=== PATIENT | female | born 1995 | race Caucasian/White ===

== ENCOUNTER 2018-03-12 12:52 | Emergency (ER) | payer OTHER ==
--- OUTSIDE RECORDS SUMMARY | 2018-03-12 12:54 | XMS REPORT ---
:1995 [facility] Address [address] [place] [address] Care Team Providers Name Role Phone Unavailable Unavailable Unavailable Problems This patient has no known problems. Allergies, Adverse Reactions, Alerts This patient has no known allergies or adverse reactions. Medications This patient has no known medications.
[2018-03-12 14:37] LABS: Absolute Lymphocytes (CBC) 1.1 K/uL (0.7-4.9); Absolute Monocytes 0.5 K/uL (0.1-1.3); Absolute Neutrophil 4.8 K/uL (1.8-8.0); Basophils % 0.5 % (0-1.3); Eosinophils % 1.4 % (0-4.4); Hematocrit 37.4 % (36.0-45.0); Lymphocytes % 17.1 % (15.3-44.8); MPV 8.5 fL (7.6-11.3); Monocytes % 8.1 % (3.3-12.3); RBC Red Blood Cell Count 4.03 M/uL (3.86-4.86)
[2018-03-12] MEDS ORDERED: NA CHLORIDE 0.9% 1,000 ML ONE (14:39)
--- NOTE | 2018-03-12 14:45 | RAD REPORT ---
EXAM DESCRIPTION: RAD - Chest Single View - 03/12/2018 2:38 pm CLINICAL HISTORY: CONGESTION Chest pain. COMPARISON: No comparisons FINDINGS: Portable technique limits examination quality. The lungs are grossly clear. The heart is normal in size. No displaced fractures. IMPRESSION: No acute intrathoracic process suspected.
[2018-03-12 14:58] LABS: ALT/SGPT 19 U/L (12-78); AST/SGOT 11 U/L (15-37); Albumin 3.5 g/dL (3.4-5.0); Alkaline Phosphatase 66 U/L (45-117); BUN Blood Urea Nitrogen 13 mg/dL (7-18); Bicarbonate 28 mmol/L (21-32); Bilirubin Direct 0.2 mg/dL (0-0.2); Bilirubin Total 0.5 mg/dL (0.2-1.0); Glucose Level 74 mg/dL (74-106); Magnesium 2.2 mg/dL (1.8-2.4); NT PRO-BNP 31 pg/mL (<125); Potassium 3.7 mmol/L (3.5-5.1); Protein, Total 6.6 g/dL (6.4-8.2); Sodium Level 140 mmol/L (136-145); Troponin (Emerg Dept Use Only) < 0.02 ng/mL (0.0-0.045)
--- NOTE | 2018-03-12 15:10 | EDPHYS ---
Physician Documentation [facility] Name: Liberty Lujan Age: 23 yrs Sex: Female : 1995 Arrival Date: 03/12/2018 Time: 12:58 Bed 24 Private MD: ED Physician [place] HPI: 03/12 14:26 This 23 yrs old Female presents to ER via Ambulatory with complaints of Near ezekiel Syncope. 14:26 The patient has experienced near-syncope, almost passed out, felt dizzy. Onset: The ezekiel symptoms/episode began/occurred just prior to arrival. Duration: This was a single episode, that lasted 20 second(s). Context: the episode(s) was witnessed, by co-worker(s). Associated injury: The patient did not suffer any apparent associated injury. Associated signs and symptoms: The patient has no apparent associated signs or symptoms. Current symptoms: Currently, the patient is not experiencing any symptoms, the patient feels back to baseline. The patient has experienced similar episodes in the past, multiple times. Historical: - Allergies: 13:01 Robitussin Cough \T\ Cold CF; ss - Home Meds: 13:01 None [Active]; ss - PMHx: 13:01 vasovagal syncope; ss - PSHx: 13:01 None; ss - Immunization history:: Adult Immunizations up to date. - Social history:: Smoking status: Patient uses tobacco products, smokes one-half pack cigarettes per day. - Ebola Screening: : Patient denies exposure to infectious person Patient denies travel to an Ebola-affected area in the 21 days before illness onset. - Family history:: not pertinent. ROS: 14:26 Constitutional: Negative for fever, chills, and weight loss, Eyes: Negative for injury, ezekiel pain, redness, and discharge, ENT: Negative for injury, pain, and discharge, Neck: Negative for injury, pain, and swelling, Cardiovascular: Negative for chest pain, palpitations, and edema, Respiratory: Negative for shortness of breath, cough, wheezing, and pleuritic chest pain, Abdomen/GI: Negative for abdominal pain, nausea, vomiting, diarrhea, and constipation, Back: Negative for injury and pain, : Negative for injury, bleeding, discharge, and swelling, Skin: Negative for injury, rash, and discoloration, Psych: Negative for depression, anxiety, suicide ideation, homicidal ideation, and hallucinations, Allergy/Immunology: Negative for hives, rash, and allergies, Endocrine: Negative for neck swelling, polydipsia, polyuria, polyphagia, and marked weight changes, Hematologic/Lymphatic: Negative for swollen nodes, abnormal bleeding, and unusual bruising. 14:26 Neuro: Positive for dizziness, near syncope, weakness. Exam: 14:26 Constitutional: This is a well developed, well nourished patient who is awake, alert, ezekiel and in no acute distress. Head/Face: Normocephalic, atraumatic. Eyes: Pupils equal round and reactive to light, extra-ocular motions intact. Lids and lashes normal. Conjunctiva and sclera are non-icteric and not injected. Cornea within normal limits. Periorbital areas with no swelling, redness, or edema. ENT: Nares patent. No nasal discharge, no septal abnormalities noted. Tympanic membranes are normal and external auditory canals are clear. Oropharynx with no redness, swelling, or masses, exudates, or evidence of obstruction, uvula midline. Mucous membranes moist. Neck: Trachea midline, no thyromegaly or masses palpated, and no cervical lymphadenopathy. Supple, full range of motion without nuchal rigidity, or vertebral point tenderness. No Meningismus. Chest/axilla: Normal chest wall appearance and motion. Nontender with no deformity. No lesions are appreciated. Cardiovascular: Regular rate and rhythm with a normal S1 and S2. No gallops, murmurs, or rubs. Normal PMI, no JVD. No pulse deficits. Respiratory: Lungs have equal breath sounds bilaterally, clear to auscultation and percussion. No rales, rhonchi or wheezes noted. No increased work of breathing, no retractions or nasal flaring. Abdomen/GI: Soft, non-tender, with normal bowel sounds. No distension or tympany. No guarding or rebound. No evidence of tenderness throughout. Back: No spinal tenderness. No costovertebral tenderness. Full range of motion. Skin: Warm, dry with normal turgor. Normal color with no rashes, no lesions, and no evidence of cellulitis. MS/ Extremity: Pulses equal, no cyanosis. Neurovascular intact. Full, normal range of motion. Neuro: Awake and alert, GCS 15, oriented to person, place, time, and situation. Cranial nerves II-XII grossly intact. Motor strength 5/5 in all extremities. Sensory grossly intact. Cerebellar exam normal. Normal gait. Psych: Awake, alert, with orientation to person, place and time. Behavior, mood, and affect are within normal limits. 14:26 Musculoskeletal/extremity: Extremities: all appear grossly normal, with no appreciated pain with palpation, ROM: no acute changes, intact in all extremities, full active range of motion, full passive range of motion, Circulation is intact in all extremities. Sensation intact. Compartment Syndrome exam of affected extremity: is normal. DVT Exam: No signs of deep vein thrombosis. no pain, no swelling, no tenderness, negative Homans' sign noted on exam, no appreciated bluish discoloration, no erythema, no increased warmth. Vital Signs: 13:01 BP 101 / 61; Pulse 102; Resp 15; Pulse Ox 100% on R/A; Weight 57.15 kg; Height 5 ft. 1 ss in. (154.94 cm); Pain 0/10; 14:28 BP 98 / 65 Supine; Pulse 90; gm 14:29 BP 99 / 67 Sitting; Pulse 97; gm 14:30 BP 99 / 66 Standing; Pulse 97; gm 15:12 BP 103 / 68; Pulse 81; Resp 16; Pulse Ox 98% on R/A; kr2 16:12 BP 108 / 70; Pulse 90; Resp 16; Pulse Ox 100% on R/A; kr2 13:01 Body Mass Index 23.81 (57.15 kg, 154.94 cm) ss MDM: 13:41 Patient medically screened. [facility] 14:29 Data reviewed: vital signs, nurses notes, lab test result(s), EKG, radiologic studies, [facility] doppler, plain films. 03/12 14:24 Order name: Basic Metabolic Panel; Complete Time: 15:09 [facility] 03/12 14:24 Order name: CBC with Diff; Complete Time: 15: [facility] 03/12 14:24 Order name: LFT's; Complete Time: 15: [facility] 03/12 14:24 Order name: Magnesium; Complete Time: 15: [facility] 03/12 14:24 Order name: NT PRO-BNP; Complete Time: 15: [facility] 03/12 14:24 Order name: Troponin (emerg Dept Use Only); Complete Time: 15: [facility] 03/12 14:24 Order name: XRAY Chest (1 view); Complete Time: 15:09 [facility] 03/12 14:24 Order name: D-Dimer; Complete Time: 15:09 [facility] 03/12 14:24 Order name: Urine Culture [facility] 03/12 14:29 Order name: Echo w/ Doppler [facility] 03/12 15:57 Order name: Urine Dipstick--Ancillary (enter results) 03/12 15:57 Order name: Urine --Ancillary (enter results) 03/12 13:42 Order name: EKG - Nurse/Tech; Complete Time: 14:10 [facility] 03/12 14:24 Order name: EKG; Complete Time: 14:25 [facility] 03/12 14:24 Order name: Cardiac monitoring; Complete Time: 14:24 [facility] 03/12 14:24 Order name: IV Saline Lock; Complete Time: 14:25 [facility] 03/12 14:24 Order name: Labs collected and sent; Complete Time: 14:25 [facility] 03/12 14:24 Order name: O2 Per Protocol; Complete Time: 14:25 [facility] 03/12 14:24 Order name: O2 Sat Monitoring; Complete Time: 14:25 [facility] 03/12 14:24 Order name: Urine Dipstick-Ancillary (obtain specimen); Complete Time: 15:11 [facility] 03/12 14:24 Order name: Urine Test (obtain specimen); Complete Time: 15:11 [facility] 03/12 14:24 Order name: Orthostatics; Complete Time: 14:32 [facility] Administered Medications: 14:31 Drug: NS 0.9% 1000 ml Route: IV; Rate: 1 bolus; Site: right forearm; kr2 15:53 Follow up: Response: No adverse reaction; IV Status: Completed infusion kr2 15:35 Drug: Rocephin - (cefTRIAXone) 1 grams Route: IVPB; Infused Over: 30 mins; Site: right kr2 forearm; 15:53 Follow up: Response: No adverse reaction; IV Status: Completed infusion kr2 15:53 Drug: Cipro 250 mg Route: PO; kr2 15:53 Follow up: Response: Medication administered at discharge. kr2 Disposition: 03/12/18 15:09 Discharged to Home. Impression: Syncope and collapse - vasovagal, Hypotension, Urinary tract infection, site not specified. - Condition is Stable. - Discharge Instructions: Dysuria, Near-Syncope, Urinary Tract Infection, Adult, Weakness, Urinary Tract Infection, Adult, [id number]-[id number], Near-Syncope, Wweq-ri-Lvfg, Weakness, Hzbk-bn-Mbvo, Vasovagal Syncope, Adult. - Prescriptions for Cipro 250 mg Oral Tablet - take 1 tablet by ORAL route every 12 hours; 14 tablet. - Medication Reconciliation Form, Thank You Letter, Antibiotic Education, Prescription Opioid Use, Work release form form. - Follow up: Private Physician; When: 2 - 3 days; Reason: Recheck today's complaints, Continuance of care, Re-evaluation by your physician. Follow up: Regis Joel; When: 2 - 3 days; Reason: Recheck today's complaints, Re-evaluation by your physician. - Problem is new. - Symptoms have improved. Signatures: Dispatcher [employer] EDMS [place] MD MD cha Smirch, Shelby, RN RN ss Ivett Nails RN RN kr2 Corrections: (The following items were deleted from the chart) 15:10 15:09 03/12/2018 15:09 Discharged to Home. Impression: Syncope and collapse - ezekiel vasovagal; Hypotension. Condition is Stable. Discharge Instructions: Near-Syncope, Weakness, Near-Syncope, Jkmb-zv-Gfbi, Weakness, Ebdg-nd-Uigc, Vasovagal Syncope, Adult. Forms are Medication Reconciliation Form, Thank You Letter, Antibiotic Education, Prescription Opioid Use. Follow up: Private Physician; When: 2 - 3 days; Reason: Recheck today's complaints, Continuance of care, Re-evaluation by your physician. Follow up: Regis Joel; When: 2 - 3 days; Reason: Recheck today's complaints, Re-evaluation by your physician. Problem is new. Symptoms have improved. [facility] 16:14 15:10 03/12/2018 15:09 Discharged to Home. Impression: Syncope and collapse - kr2 vasovagal; Hypotension; Urinary tract infection, site not specified. Condition is Stable. Discharge Instructions: Near-Syncope, Weakness, Near-Syncope, Zmvv-ld-Lxkj, Weakness, Uwyv-ci-Rntc, Vasovagal Syncope, Adult. Forms are Medication Reconciliation Form, Thank You Letter, Antibiotic Education, Prescription Opioid Use. Follow up: Private Physician; When: 2 - 3 days; Reason: Recheck today's complaints, Continuance of care, Re-evaluation by your physician. Follow up: Regis Joel; When: 2 - 3 days; Reason: Recheck today's complaints, Re-evaluation by your physician. Problem is new. Symptoms have improved. ezekiel
--- NOTE | 2018-03-12 15:10 | ER ---
Nurse's Notes [facility] Name: Liberty Lujan Age: 23 yrs Sex: Female : 1995 Arrival Date: 03/12/2018 Time: 12:58 Bed 24 Private MD: Diagnosis: Syncope and collapse-vasovagal;Hypotension;Urinary tract infection, site not specified Presentation: 03/12 12:58 Presenting complaint: Patient states: near syncope while at work. Pt reports that this ss is an often occurrence. On EMS arrival. EMS reports that initial BP was 91/70, BGL 107. Pt reports that Dr. Ohara had prescribed her a medication to help with her hypotension, but it was making her BP too high, so she has been taken off. Transition of care: patient was not received from another setting of care. Onset of symptoms was March 12, 2018. Risk Assessment: Do you want to hurt yourself or someone else? Patient reports no desire to harm self or others. Initial Sepsis Screen: Does the patient meet any 2 criteria? No. Patient's initial sepsis screen is negative. Does the patient have a suspected source of infection? No. Patient's initial sepsis screen is negative. Care prior to arrival: Medication(s) given: Normal saline infusion, 500 mL, IV initiated. 20 GA, in the right antecubital area, Glucose check: 107. 12:58 Method Of Arrival: Ambulatory ss 12:58 Acuity: TRENT 3 ss Historical: - Allergies: 13:01 Robitussin Cough \T\ Cold CF; ss - Home Meds: 13:01 None [Active]; ss - PMHx: 13:01 vasovagal syncope; ss - PSHx: 13:01 None; ss - Immunization history:: Adult Immunizations up to date. - Social history:: Smoking status: Patient uses tobacco products, smokes one-half pack cigarettes per day. - Ebola Screening: : Patient denies exposure to infectious person Patient denies travel to an Ebola-affected area in the 21 days before illness onset. - Family history:: not pertinent. Screenin:15 Abuse screen: Denies threats or abuse. Denies injuries from another. Nutritional kr2 screening: No deficits noted. Tuberculosis screening: No symptoms or risk factors identified. Fall Risk IV access (20 points). Assessment: 13:15 General: Appears in no apparent distress. comfortable, well groomed, well developed, kr2 well nourished, Behavior is calm, cooperative, appropriate for age. Pain: Denies pain. Neuro: Level of Consciousness is awake, alert, obeys commands, Oriented to person, place, time, situation, Appropriate for age Chemistry Technician are equal bilaterally Moves all extremities. Full function Speech is normal, Facial symmetry appears normal, Pupils are PERRLA, Intact. Cardiovascular: Capillary refill < 3 seconds in bilateral fingers Patient's skin is warm and dry. Respiratory: Airway is patent Respiratory effort is even, unlabored, Respiratory pattern is regular, symmetrical. GI: Abdomen is flat, non-distended, Bowel sounds present X 4 quads. Abd is soft and non tender X 4 quads. Patient currently denies abdominal pain. : Denies burning with urination. EENT: Oral mucosa is moist. Derm: Skin is intact, is healthy with good turgor, Skin is pink, warm \T\ dry. pale. Musculoskeletal: Circulation, motion, and sensation intact. 14:15 Reassessment: Patient appears in no apparent distress at this time. Patient and/or kr2 family updated on plan of care and expected duration. Pain level reassessed. Patient is alert, oriented x 3, equal unlabored respirations, skin warm/dry/pink. Patient denies pain at this time. Patient states feeling better. 15:12 Reassessment: Patient appears in no apparent distress at this time. Patient and/or kr2 family updated on plan of care and expected duration. Pain level reassessed. Patient is alert, oriented x 3, equal unlabored respirations, skin warm/dry/pink. Patient denies pain at this time. Patient states feeling better. Pain: Denies pain. 16:11 Reassessment: Patient appears in no apparent distress at this time. Patient and/or kr2 family updated on plan of care and expected duration. Pain level reassessed. Patient is alert, oriented x 3, equal unlabored respirations, skin warm/dry/pink. Patient denies pain at this time. Patient states feeling better. Vital Signs: 13:01 BP 101 / 61; Pulse 102; Resp 15; Pulse Ox 100% on R/A; Weight 57.15 kg; Height 5 ft. 1 ss in. (154.94 cm); Pain 0/10; 14:28 BP 98 / 65 Supine; Pulse 90; gm 14:29 BP 99 / 67 Sitting; Pulse 97; gm 14:30 BP 99 / 66 Standing; Pulse 97; gm 15:12 BP 103 / 68; Pulse 81; Resp 16; Pulse Ox 98% on R/A; kr2 16:12 BP 108 / 70; Pulse 90; Resp 16; Pulse Ox 100% on R/A; kr2 13:01 Body Mass Index 23.81 (57.15 kg, 154.94 cm) ED Course: 12:58 Patient arrived in ED. ss 13:00 Triage completed. ss 13:01 Arm band placed on right wrist. ss 13:15 Patient has correct armband on for positive identification. Placed in gown. Bed in low kr2 position. Call light in reach. Side rails up X2. Adult w/ patient. nurse monitoring on. Pulse ox on. NIBP on. Door closed. Warm blanket given. Head of bed elevated. 13:15 Maintain EMS IV. Dressing intact. Good blood return noted. Site clean \T\ dry. Gauge \T\ kr 2 site: 20g right forearm. 13:41 [place] MD is Attending Physician. ezekiel 13:41 Ivett Nails, OG is Primary Nurse. kr2 14:05 EKG done, by technical lead. reviewed by [place] MD. tc 14:38 X-ray completed. Portable x-ray completed in exam room. Patient tolerated procedure kp1 well. 14:39 XRAY Chest (1 view) In Process Unspecified. EDMS 15:09 Regis Joel MD is Referral Physician. ezekiel 15:11 Urine Culture Sent. kr2 16:13 IV discontinued, intact, bleeding controlled, No redness/swelling at site. Pressure kr2 dressing applied. 16:13 No provider procedures requiring assistance completed. kr2 Administered Medications: 14:31 Drug: NS 0.9% 1000 ml Route: IV; Rate: 1 bolus; Site: right forearm; kr2 15:53 Follow up: Response: No adverse reaction; IV Status: Completed infusion kr2 15:35 Drug: Rocephin - (cefTRIAXone) 1 grams Route: IVPB; Infused Over: 30 mins; Site: right kr2 forearm; 15:53 Follow up: Response: No adverse reaction; IV Status: Completed infusion kr2 15:53 Drug: Cipro 250 mg Route: PO; kr2 15:53 Follow up: Response: Medication administered at discharge. kr2 Outcome: 15:09 Discharge ordered by . ezekiel 16:13 Discharged to home ambulatory, with family. kr2 16:13 Condition: good 16:13 Discharge instructions given to patient, family, Instructed on discharge instructions, follow up and referral plans. medication usage, Demonstrated understanding of instructions, follow-up care, medications, Prescriptions given X 1. 16:14 Patient left the ED. kr2 Addendum: 03/15/2018 08:50 Addendum: Culture Results: Positive urine culture. No further action required. Bacteria i w sensitive to prescribed antibiotic. Signatures: Dispatcher [employer] EDMS [place] MD MD cha Williams, Irene, RN RN Marily Gardner RN RN Brenda Maciel, site administrator EKG [facility] Nanda Middleton kp1 Ivett Nails RN RN kr2 Kimber Zhang Corrections: (The following items were deleted from the chart) 03/12 13:02 12:58 Care prior to arrival: None. [facility] 14:32 14:32 BP 99 / 66 Standing; Pulse 97bpm; gm gm
--- NOTE | 2018-03-12 15:17 | EKG ---
Test Date: 2018-03-12 Test Time: 13:58:23 Supervisory Lifeguard: DT/T MEASUREMENT RESULTS: Intervals: Rate: 93 IA: 146 QRSD: 74 QT: 358 QTc: 445 [place]: P: 79 IA: 146 QRS: 83 T: 66 INTERPRETIVE STATEMENTS: Normal sinus rhythm Normal ECG No previous ECG available for comparison Electronically Signed On 03-12-18 15:17:15 HOOP PUNCH AND COILER OPERATOR by Regis Joel
--- NOTE | 2018-03-12 15:19 | ECHO ---
HEIGHT: ft in WEIGHT: lb oz DATE OF STUDY: 03/12/[address]: [place] MD 2-DIMENSIONAL: YES M.MODE: YES DOPPLER: YES COLOR FLOW: YES TDS: PORTABLE: DEFINITY: BUBBLE STUDY: DIAGNOSIS: SYNCOPE CARDIAC HISTORY: CATHERIZATION: NO SURGERY: NO PROSTHETIC VALVE: NO PACEMAKER: NO MEASUREMENTS (cm) DIASTOLIC (NORMALS) SYSTOLIC (NORMALS) IVSd 0.8 (0.6-1.2) LA Diam 2.6 (1.9-4.0) LVEF 64% LVIDd 3.7 (3.5-5.7) LVIDs 2.1 (2.0-3.5) %FS 42% LVPWd 0.9 (0.6-1.2) Ao Diam 2.3 (2.0-3.7) 2 DIMENSIONAL ASSESSMENT: RIGHT ATRIUM: NORMAL LEFT ATRIUM: NORMAL RIGHT VENTRICLE: NORMAL LEFT VENTRICLE: NORMAL TRICUSPID VALVE: NORMAL MITRAL VALVE: NORMAL PULMONIC VALVE: NORMAL AORTIC VALVE: NORMAL PERICARDIAL EFFUSION: NONE AORTIC ROOT: NORMAL LEFT VENTRICULAR WALL MOTION: NORMAL DOPPLER/COLOR FLOW: PHYSIOLOGIC TRICUSPID REGURGITATION. COMMENTS: NORMAL TWO DIMENSIONAL ECHOCARDIOGRAM WITH DOPPLER. TECHNOLOGIST: LEE EVANGELISTA
[2018-03-12] MEDS ORDERED: CEFTRIAXONE/SWI 1gm 1 GM/10 ML SYR ONE (15:39)
[2018-03-12] MEDS ORDERED: CIPROFLOXACIN HCL 500 MG TAB ONE (15:52)
[2018-03-12 16:19] LABS: Urine Blood NEGATIVE (NEG); Urine Glucose NEGATIVE (NEG); Urine Protein NEGATIVE (NEG)
[2018-03-12 17:09] VITALS: BP 108/70; O2SAT 100
== END 2018-03-12 16:14 | disposition home or self-care (01) ==
LOC: ER 12:52
DX: I95.9 Hypotension, unspecified (principal); N39.0 Urinary tract infection, site not specified; F17.210 Nicotine dependence, cigarettes, uncomplicated; Z88.8 Allergy status to other drugs, medicaments and biological substances
CPT/HCPCS: 36415; 71045; 80048; 80076; 81003; 81025; 83735; 83880; 84484; 85025; 85379; 87077; 87086; 87088; 87186; 93005; 93306; 96361; 96365; 99284; J0696; J7030

== ENCOUNTER 2018-09-14 17:16 | Emergency (ER) | payer OTHER ==
--- OUTSIDE RECORDS SUMMARY | 2018-09-14 17:19 | XMS REPORT | Summary of Care ---
:1995 Author Organization [facility] [place] Address [address] [place] [address]- Encounter HQ Encntr_alias(FIN) [id number] Date(s): 09/02/18 - 09/02/18 [facility], [place] [address], [place] [id number]- [phone] Attending Physician: Christopher Ruiz MD Referring Physician: Rigo Barrientos MD Vital Signs No data available for this section Problem List Condition Effective Dates Status Health Status Informant ADHD(Confirmed) Active Syncope(Confirmed) Active Allergies, Adverse Reactions, Alerts Substance Reaction Severity Status naproxen Active Robitussin Active Medications No data available for this section Results No data available for this section Immunizations No data available for this section Procedures No data available for this section Social History Social History Type Response Employment/School Status: Employed. Work/School description: hairdresser. Smoking Status Current some day smoker; Type: Cigarettes; Exposure to Tobacco Smoke Unable to obtain; Cigarette Smoking Last 365 Days Yes; Reg Smoking Cessation Counseling No entered on: 08/28/18 Assessment and Plan No data available for this section
--- OUTSIDE RECORDS SUMMARY | 2018-09-14 17:19 | XMS REPORT ---
:1995 Author Organization [facility] Address [address] [place] [address] Care Team Providers Name Role Phone Unavailable Unavailable Unavailable Payers Payer Name Policy Type Policy Number Effective Date Expiration Date Problems This patient has no known problems. Allergies, Adverse Reactions, Alerts Allergy Name Allergy Status Severity Reaction(s) Onset Inactive Treating Comments Type Date Date Clinician guaifenesin DA Active U 2018-05 00:00:0 0 naproxen DA Active U 2018-05 00:00:0 0 Medications This patient has no known medications. Results Test Description Test Time Test Comments Text Results Atomic Results Result Comments PROTHROMBIN TIME 2018-05-21 13:50:00 Test Item Value Reference Range Comments PROTHROMBIN TIME PATIENT (test 10.6 SECONDS 9.6-11.6 code=PTP) INTERNATIONAL NORMAL RATIO (test 1.0 0.8-1.1 The INR is to be used only for code=INR) monitoring oral anticoagulanttherapy. INDICATION INR VALUE ----1. Prophylaxis, deep venous thrombosis, including high risk surgery. 2.0 - 3.0 2. Prophylaxis, deep venous thrombosis, hip surgery, treatment for deep venous thrombosis or pulmonary prevention of systemic embolism in patients with valvular heart disease, atrial fibrillation, tissue heart valve, or acute myocardial infarction. 2.0 - 3.0 3. Mechanical prosthesis heart valves, recurrent systemic embolism. 3.0 - 4.5 Comments to Candle Wrapping Machine Operator: NURSE TO LABPTT [id number] 13:50:00 Test Item Value Reference Range Comments PTT ACTIVATED (test code=APTT) 26.5 SECONDS 22.0-33.0 Comments to Candle Wrapping Machine Operator: NURSE TO LABHCG SERUM [id number] 13:45:00 Test Item Value Reference Range Comments HCG SERUM QUAL (test code=HCGQL) NEGATIVE NEGATIVE BASIC METABOLIC [id number] 13:29:00 Test Item Value Reference Range Comments SODIUM (test code=NA) 140 MMOL/L 137-145 POTASSIUM (test code=K) 4.5 MMOL/L 3.5-5.1 CHLORIDE (test code=CL) 106 MMOL/L 98-107 CARBON DIOXIDE (test code=CO2) 27 MMOL/L 22-30 ANION GAP (test code=GAP) 12 MMOL/L 14-24 GLUCOSE (test code=GLU) 84 MG/DL 74-106 BLOOD UREA NITROGEN (test 8 MG/DL 7-17 code=BUN) GLOMERULAR FILTRATION RATE > 60 Reporting units: ml/min/1.73 (test code=GFR) m2 (Modified MDRD Formula)Reference Range: > or=60 ml/min/1.73 m2 CREATININE (test code=CREAT) 0.70 MG/DL 0.52-1.04 CALCIUM (test code=CA) 9.5 MG/DL 8.4-10.2 [id number] 13:29:00 Test Item Value Reference Range Comments MAGNESIUM (test code=MAG) 1.9 MG/DL 1.6-2.3 CBC W/AUTO [id number] 13:22:00 Test Item Value Reference Range Comments WHITE BLOOD CELL (test code=WBC) 5.1 K/MM3 3.8-9.8 RED BLOOD CELL (test code=RBC) 4.18 M/MM3 3.58-4.97 HEMOGLOBIN (test code=HGB) 12.9 G/DL 11.2-14.9 HEMATOCRIT (test code=HCT) 38.8 % 33.2-43.5 MEAN CELL VOLUME (test code=MCV) 93 fL 80.7-99.1 MEAN CELL HGB (test code=MCH) 30.9 pg 27.0-34.1 MEAN CELL HGB CONCETRATION (test code=MCHC) 33.2 % 32.2-35.7 RED CELL DISTRIBUTION WIDTH (test code=RDW) 12.0 % 12.1-15.2 PLATELET COUNT (test code=PLT) 221 K/MM3 129-368 MEAN PLATELET VOLUME (test code=MPV) 10.0 fl 7.4-10.4 NEUTROPHIL % (test code=NT%) 50.7 % 43-75 IMMATURE GRANULOCYTE % (test code=IG%) 0.2 % 0.0-2.0 LYMPHOCYTE % (test code=LY%) 35.6 % 14-44 MONOCYTE % (test code=MO%) 9.0 % 4-13 EOSINOPHIL % (test code=EO%) 3.9 % 0-6 BASOPHIL % (test code=BA%) 0.6 % 0-2 NUCLEATED RBC % (test code=NRBC%) 0.0 % 0-1.0 NEUTROPHIL # (test code=NT#) 2.59 K/mm3 2.0-7.6 IMMATURE GRANULOCYTE # (test code=IG#) 0.01 x10 3/uL 0-0.03 LYMPHOCYTE # (test code=LY#) 1.82 K/mm3 1.0-3.8 MONOCYTE # (test code=MO#) 0.46 K/mm3 0.1-0.8 EOSINOPHIL # (test code=EO#) 0.20 K/mm3 0.0-0.2 BASOPHIL # (test code=BA#) 0.03 K/mm3 0.0-0.2 NUCLEATED RBC # (test code=NRBC#) 0.00 K/mm3 0.0-0.1
--- OUTSIDE RECORDS SUMMARY | 2018-09-14 17:19 | XMS REPORT | Continuity of Care Document ---
:[address] [facility] Care Team Providers Name Role Phone [facility] Unavailable Unavailable Problems Problem Status Onset Classification Date Comments Source Date Reported ADHD Active Problem 09/06/2018 [facility] Syncope Active Problem 09/06/2018 [facility] Medications Medication Details Route Status Patient Ordering Order Source Instructions Provider Date midodrine 2.5 mg 2.5 mg=1 Active [facility] tablet tab, PO, 019 [facility] TID, 0 Refill(s) LEVOMEFOLATE PO, Daily, Active [facility] 0 019 [facility] Refill(s) Amphetamine 20 mg=1 Active [facility] aspartate 5 MG / tab, PO, 019 [facility] Amphetamine Sulfate TID, 0 5 MG / Refill(s) Dextroamphetamine saccharate 5 MG / Dextroamphetamine Sulfate 5 MG Oral Tablet [Adderall] Allergies, Adverse Reactions, Alerts Substance Category Reaction Severity Reaction Status Date Comments Source type Reported naproxen Assertion Drug Active [facility] Robitussin Assertion Drug Active [facility] Immunizations No Data Provided for This Section Results No Data Provided for This Section Pathology Reports No Data Provided for This Section Diagnostic Reports No Data Provided for This Section Consultation Notes No Data Provided for This Section Discharge Summaries No Data Provided for This Section History and Physicals No Data Provided for This Section Vital Signs Vital Sign Value Date Comments Source Weight 60.455 08/28/2018 [facility] BMI Calculated 23.61 08/28/2018 [facility] Height 160.02 cm 08/28/2018 [facility] Systolic (mm Hg) 96 08/28/2018 [facility] Diastolic (mm Hg) 82 08/28/2018 [facility] Heart Rate 66 08/28/2018 [facility] Respitory Rate 16 08/28/2018 [facility] Encounters Location Location Encounter Encounter Reason Attending ADM DC Status Source Details Type Number For Provider Date Date Visit Outpatient [id number] Christopher 08/28 [facility] [place] [facility] Out[facility] [id number] Christopher 08/28 08/29 [facility] [place] /2018 [facility] [place] [facility] [id number] Christopher 09/02 Active [facility] [place] [facility] Amb[facility] [id number] Christopher 09/02 09/02 [facility] [place] [facility] [id number] Christopher 09/04 Active [facility] [place] [facility] [id number] Christopher 09/04 09/04 [facility] [place] [facility] [id number] Christopher 10/[address] [facility] [place] Procedures No Data Provided for This Section Assessment and Plan No Data Provided for This Section Plan of Care No Data Provided for This Section Social History Social History Date Source Social History TypeResponse 08/28/2018 [facility] Employment/School Status: Employed. Work/School description: [employer]. Smoking Status Current some day smoker; Type: Cigarettes; Exposure to Tobacco Smoke Unable to obtain; Cigarette Smoking Last 365 Days Yes; Reg Smoking Cessation Counseling No entered on: 08/28/18 Family History No Data Provided for This Section Advance Directives No Data Provided for This Section Functional Status No Data Provided for This Section
--- OUTSIDE RECORDS SUMMARY | 2018-09-14 17:19 | XMS REPORT | Summary of Care ---
:1995 Author Organization [facility] [place] Address [address] [place] [address]- Encounter HQ Encntr_alias(FIN) [id number] Date(s): 09/04/18 - 09/04/18 [facility] [address], [place] [address]- [phone] Attending Physician: Christopher Ruiz MD Referring Physician: [...]
--- OUTSIDE RECORDS SUMMARY | 2018-09-14 17:19 | XMS REPORT | Summary of Care ---
:1995 Author Organization [facility] [place] Address [address] [place] [address]- Encounter HQ Lorettar_ramone(FIN) [id number] Date(s): 08/28/18 - 08/28/18 [facility] [address] [place], [place] [address]- [phone] Discharge Disposition: Home or Self Care Attending Physician: Christopher Ruiz MD Referring Physician: Rigo Barrientos MD Vital Signs Most recent to oldest [Reference Range]: 1 Height 160.02 cm (08/28/18 10:35 AM) Blood Pressure [90-140/60-90 mmHg] 96/82 mmHg (08/28/18 10:35 AM) Respiratory Rate [14-20 BRMIN] 16 BRMIN (08/28/18 10:35 AM) Peripheral Pulse Rate [60-100 bpm] 66 bpm (08/28/18 10:35 AM) Weight 60.455 kg (08/28/18 10:35 AM) Body Mass Index 23.61 m2 (08/28/18 10:35 AM) Problem List Condition Effective Dates Status Health Status Informant ADHD(Confirmed) Active Syncope(Confirmed) Active Allergies, Adverse Reactions, Alerts Substance Reaction Severity Status naproxen Active Robitussin Active Medications Adderall 20 mg oral tablet 20 mg=1 tab, PO, TID, 0 Refill(s) Start Date: 08/28/18 Status: Orderedl-methylfolate PO, Daily, 0 Refill(s) Start Date: 08/28/18 Status: Orderedmidodrine 2.5 mg oral tablet 2.5 mg=1 tab, PO, TID, 0 Refill(s) Start Date: 08/28/18 Status: Ordered Results No data available for this section Immunizations No data available for this section Procedures No data available for this section Social History Social History Type Response Employment/School Status: Employed. Work/School description: [employer]. Smoking Status Current some day smoker; Type: Cigarettes; Exposure to Tobacco Smoke Unable to obtain; Cigarette Smoking Last 365 Days Yes; Reg Smoking Cessation Counseling No entered on: 08/28/18 Assessment and Plan No data available for this section
[2018-09-14 18:09] LABS: Absolute Lymphocytes (CBC) 1.4 K/uL (0.7-4.9); Basophils % 0.5 % (0-1.3); Eosinophils % 4.4 % (0-4.4); Hematocrit 46.6 % (36.0-45.0); Lymphocytes % 22.1 % (15.3-44.8); MPV 9.1 fL (7.6-11.3); Monocytes % 6.5 % (3.3-12.3); RBC Red Blood Cell Count 5.06 M/uL (3.86-4.86)
[2018-09-14 18:21] LABS: Urine Bacteria >50 /HPF (<20); Urine Culture Reflex Order REFLEXED; Urine RBC <5 /HPF (NONE SEEN)
[2018-09-14 18:23] LABS: Urine Blood 2+ (NEG); Urine Glucose NEGATIVE (NEG); Urine Protein NEGATIVE (NEG); Urine pH 5.5 (5.0-7.0)
[2018-09-14 18:23] LABS: ALT/SGPT 26 U/L (12-78); AST/SGOT 12 U/L (15-37); Albumin 4.2 g/dL (3.4-5.0); Alkaline Phosphatase 84 U/L (45-117); BUN Blood Urea Nitrogen 11 mg/dL (7-18); Bicarbonate 29 mmol/L (21-32); Bilirubin Direct < 0.1 mg/dL (0-0.2); Bilirubin Total 0.2 mg/dL (0.2-1.0); Glucose Level 78 mg/dL (74-106); Protein, Total 8.4 g/dL (6.4-8.2); Sodium Level 144 mmol/L (136-145)
[2018-09-14 18:23] LABS: Barbiturates NEGATIVE (NEGATIVE); Benzodiazepines NEGATIVE (NEGATIVE); Cocaine NEGATIVE (NEGATIVE); METHAMPHETAM POSITIVE (NEGATIVE); Methadone NEGATIVE (NEGATIVE); Opiates NEGATIVE (NEGATIVE); Phencyclidine NEGATIVE (NEGATIVE); THC Cannibis NEGATIVE (NEGATIVE)
[2018-09-14] MEDS ORDERED: CEFTRIAXONE/SWI 1gm 1 GM/10 ML SYR ONE (20:07)
--- NOTE | 2018-09-14 21:08 | ER ---
Nurse's Notes [facility] Name: Liberty Lujan Age: 23 yrs Sex: Female : 1995 Arrival Date: 09/14/2018 Time: 17:19 Bed 18 Private MD: Sixto Ohara B Diagnosis: Irritability and anger;Urinary tract infection, site not specified Presentation: 09/14 17:26 Presenting complaint: Patient states: I have been getting more and more depressed over la1 the last six months, started getting really bad with SI for the last couple days. I have had psychotic rages intermittently for the last couple months. Pt states she thinks about hurting herself but does not have a plan, mother states she has been texting her and saying that she was going to cut herself with a knife but she did not actually have a knife and states she said that out of her anger. Transition of care: patient was not received from another setting of care. Onset of symptoms was September 14, 2018. Risk Assessment: Do you want to hurt yourself or someone else? Patient reports desire/thoughts of hurting themselves or someone else. Provider notified. Initial Sepsis Screen: Does the patient meet any 2 criteria? No. Patient's initial sepsis screen is negative. Does the patient have a suspected source of infection? No. Patient's initial sepsis screen is negative. Care prior to arrival: None. 17:26 Method Of Arrival: Ambulatory la1 17:26 Acuity: TRENT 2 la1 Triage Assessment: 17:45 General: Appears in no apparent distress. uncomfortable, Behavior is calm, cooperative, hj appropriate for age. Pain: Denies pain. JD EDWARDS: 17:23 LMP 09/14/2018 la1 Historical: - Allergies: 17:23 Robitussin Cough \T\ Cold CF; la1 - Home Meds: 17:23 midodrine 2.5 mg oral tab 1 tab 3 times per day [Active]; la1 17:30 Adderall XR 20 mg Oral cp24 1 cap once daily [Active]; la1 - PMHx: 17:23 vasovagal syncope; la1 17:31 ADD/ADHD; la1 - PSHx: 17:23 None; la1 - Immunization history:: Adult Immunizations up to date. - Social history:: Smoking status: Patient uses tobacco products, smokes one-half pack cigarettes per day, Patient/guardian denies using alcohol, street drugs. - Ebola Screening: : No symptoms or risks identified at this time. Screenin:44 Abuse screen: Denies threats or abuse. Denies injuries from another. Nutritional hj screening: No deficits noted. Tuberculosis screening: No symptoms or risk factors identified. Fall Risk None identified. Assessment: 17:22 General: Appears in no apparent distress. uncomfortable, Behavior is calm, cooperative, hj appropriate for age. Pain: Denies pain. Neuro: Level of Consciousness is awake, alert, obeys commands, Oriented to person, place, time, situation, Appropriate for age. Neuro: Reports feeling depressed for 6 months. Cardiovascular: Denies chest pain, Capillary refill < 3 seconds Patient's skin is warm and dry. Respiratory: Airway is patent Respiratory effort is even, unlabored, Respiratory pattern is regular, symmetrical. GI: No signs and/or symptoms were reported involving the gastrointestinal system. : No signs and/or symptoms were reported regarding the genitourinary system. EENT: No signs and/or symptoms were reported regarding the EENT system. Derm: No signs and/or symptoms reported regarding the dermatologic system. Musculoskeletal: No signs and/or symptoms reported regarding the musculoskeletal system. 18:16 Reassessment: pt belongings give to pt's mother. iw 18:44 Reassessment: Patient appears in no apparent distress at this time. Patient and/or em family updated on plan of care and expected duration. Pain level reassessed. Patient is alert, oriented x 3, equal unlabored respirations, skin warm/dry/pink. currently denies SI, no complaints at this time, father at bedside. 19:18 Reassessment: Patient appears in no apparent distress at this time. Patient and/or cc3 family updated on plan of care and expected duration. Pain level reassessed. Patient is alert, oriented x 3, equal unlabored respirations, skin warm/dry/pink. Received this female patient from morning shift [facility] as a case of suicidal ideations but currently no plans. With IV cannula gauge 22 at the right ACV saline locked. Parents at bedside and sitter present. As endorsed, patient's belongings are with her parents. Patient just had her dinner. Patient denies pain at this time. General: Appears in no apparent distress. comfortable, Behavior is calm, cooperative, appropriate for age. Pain: Denies pain. Neuro: Level of Consciousness is awake, alert, obeys commands, Oriented to person, place, time, situation, Appropriate for age. Cardiovascular: Denies chest pain, Capillary refill < 3 seconds Patient's skin is warm and dry. Respiratory: Airway is patent Respiratory effort is even, unlabored, Respiratory pattern is regular, symmetrical. GI: Abdomen is flat. : No signs and/or symptoms were reported regarding the genitourinary system. EENT: No signs and/or symptoms were reported regarding the EENT system. Derm: Skin is intact, is healthy with good turgor, Skin is pink, warm \T\ dry. normal. Musculoskeletal: Circulation, motion, and sensation intact. Range of motion: intact in all extremities. 20:30 Reassessment: Patient appears in no apparent distress at this time. Patient and/or cc3 family updated on plan of care and expected duration. Pain level reassessed. Patient is alert, oriented x 3, equal unlabored respirations, skin warm/dry/pink. [facility] staff came and seeing the patient now at bedside. 21:20 Reassessment: Patient appears in no apparent distress at this time. Patient and/or cc3 family updated on plan of care and expected duration. Pain level reassessed. Patient is alert, oriented x 3, equal unlabored respirations, skin warm/dry/pink. ROLO Almonte discharged the patient home with prescription given. IV cannula removed and patient left ER vitally stable and ambulatory with her mother. No valuables left in the patient's room. Patient denies pain at this time. Patient states feeling better. Patient states symptoms have improved. Psych: 17:24 Subjective: Patient's mood is sad. Subjective: Delusions are denied, Hallucinations are la1 denied Having thoughts of suicide. Denies suicidal plan. Subjective: Having thoughts of suicide. Pt mother states she has been getting texts stating that she has a knife and she is going to hurt herslf. Objective: Patient is cooperative. Interventions: Patient placed in hospital gown. Suicide Risk Assessment: Sad Person Scale: Sex of patient: Female: Score 0 points. Age of patient: Score 1 point if patient 15-34. Depression: Score 1 point if signs of depression are present. Previous Attempt: Score 0 point if patient has not previously attempted suicide. Substance Abuse: Score 0 point if patient does not abuse alcohol or drugs. Rational Thinking: Score 0 point if patient has rational thinking. Social Support: Score 0 if social support is present/available. Organized Plan: Score 0 if patient did not have an organized plan in place. Relationship: Score 1 point if patient is , , , or for a single male Chronic Sickness: Score 0 point if patient does not have a chronic illness, debilitating, or severe disorder. TOTAL POINTS: If total points are 3-4, proposed clinical action is close follow-up/consider hospitalization. Safety Checks: Pt denies substance abuse. Commitment: Patient will be a voluntary commitment. Vital Signs: 17:23 BP 118 / 69; Pulse 103; Resp 14; Temp 97.6; Pulse Ox 98% on R/A; Weight 59.87 kg; la1 Height 5 ft. 2 in. (157.48 cm); Pain 0/10; 17:23 Body Mass Index 24.14 (59.87 kg, 157.48 cm) la1 ED Course: 17:19 Patient arrived in ED. mr 17:19 Sixto Ohara MD is Private Physician. mr 17:24 Arm band placed on left wrist. la1 17:28 Triage completed. la1 17:37 Ronak Almonte NP is PHCP. pm1 17:37 Kim Wolfe MD is Attending Physician. pm1 17:44 Dameon Cox RN is Primary Nurse. hj 17:45 Patient has correct armband on for positive identification. Placed in gown. Bed in low hj position. Call light in reach. Side rails up X 1. Adult w/ patient. 17:55 Inserted saline lock: 22 gauge in right antecubital area, using aseptic technique. jp3 Blood collected. 17:55 Initial lab(s) drawn, by me, sent to lab. Urine collected: clean catch specimen, clear, jp3 sherron colored, Legal drug screen obtained per protocol. Patient maintains SpO2 saturation greater than 95% on room air. 18:21 Valuables Given to family. Warm blanket given. Pillow given. Verbal reassurance given. jp3 18:30 Safety checks: Items removed: yes. Door open/sign placed on door: yes. Family/friend jb1 present: yes. Family/friends encouraged to stay with patient. Sitter present: Yes. 18:44 Bayron Poole LVN is Primary Nurse. em 18:45 Safety checks: Items removed: yes. Door open/sign placed on door: yes. Family/friend jb1 present: yes. Family/friends encouraged to stay with patient. Sitter present: Yes. 19:00 Safety checks: Items removed: yes. Door open/sign placed on door: yes. Family/friend mt present: yes. Sitter present: Yes. 19:15 Safety checks: Items removed: yes. Door open/sign placed on door: yes. Family/friend mt present: yes. Sitter present: Yes. 19:30 Safety checks: Items removed: yes. Door open/sign placed on door: yes. Family/friend mt present: yes. Sitter present: Yes. 19:45 Safety checks: Items removed: yes. Door open/sign placed on door: yes. Family/friend mt present: no. Sitter present: Yes. 20:00 Safety checks: Items removed: yes. Door open/sign placed on door: yes. Family/friend mt present: no. Sitter present: Yes. 20:15 Safety checks: Items removed: yes. Door open/sign placed on door: yes. Family/friend mt present: no. Sitter present: Yes. 20:30 Safety checks: Items removed: yes. Door open/sign placed on door: yes. Family/friend mt present: no. Sitter present: Yes. Other: [facility] at bedside. 21:20 No provider procedures requiring assistance completed. IV discontinued, intact, cc3 bleeding controlled, No redness/swelling at site. Pressure dressing applied. Administered Medications: 19:52 Drug: Rocephin 1 grams Route: IV; Rate: calculated rate; Site: right antecubital; cc3 20:10 Follow up: Response: No adverse reaction; IV Status: Completed infusion; IV Intake: [id number] Intake: 20:10 IV: 10ml; Total: 10ml. cc3 Outcome: 21:07 Discharge ordered by . pm1 21:20 Discharged to home ambulatory, with family. cc3 21:20 Condition: stable 21:20 Discharge instructions given to patient, family, Instructed on discharge instructions, follow up and referral plans. medication usage, Demonstrated understanding of instructions, follow-up care, medications, Prescriptions given X 1. 21:24 Patient left the ED. cc3 Addendum: 09/17/2018 07:43 Addendum: Culture Results: Positive urine culture. No further action required. Bacteria m s sensitive to prescribed antibiotic. Signatures: Royce Wiggins jb1 Wendy Carson, Bayron, PIN DRAFTER OPERATOR PIN DRAFTER OPERATOR em Aziza Brown, RN RN iw Majo Thibodeaux ms L[place], [place], RN RN la1 Dameon Cox, Ronak Palmer RN, ROLO DATA PROCESSING SYSTEMS CONSULTANT pm1 Ric, Sandro Pineda mt jp3 Deyanira Kasper cc3 Corrections: (The following items were deleted from the chart) 09/14 17:28 17:23 BP 188 / 69; Pulse 103bpm; Resp 14bpm; Pulse Ox 98% RA; Temp 97.6F; 59.87 kg; la1 Height 5 ft. 2 in.; BMI: 24.1; Pain 0/10; la1 18:30 18:26 Safety checks: Items removed: yes. Door open/sign placed on door: yes. jb1 Family/friend present: yes. Family/friends encouraged to stay with patient. Sitter present: Yes. jb 19:11 18:44 Reassessment: Patient appears in no apparent distress at this time. Patient em and/or family updated on plan of care and expected duration. Pain level reassessed. Patient is alert, oriented x 3, equal unlabored respirations, skin warm/dry/pink. currently denies SI, no complaints at this time em
--- NOTE | 2018-09-14 21:08 | EDPHYS ---
Physician Documentation [facility] Name: Liberty Lujan Age: 23 yrs Sex: Female : 1995 Arrival Date: 09/14/2018 Time: 17:19 Bed 18 Private MD: Sixto Ohara B ED Physician Kim Wolfe HPI: 09/14 17:55 This 23 yrs old Female presents to ER via Ambulatory with complaints of pm1 Suicidal Ideation. 17:55 The patient presents to the emergency department with Anger and irritability. Onset: pm1 The symptoms/episode began/occurred 3 day(s) ago. Past psychiatric history: Prior diagnosis: ADD/ADHD, Psychiatric medications include: Adderall. Associated signs and symptoms: Pertinent negatives: anxiety, depression, fever, homicidal ideation, substance abuse, suicide ideation. Patient with anger and fits of rage over the past 6 months. Worse over the past three days. Patient denies and homicidal or suicidal ideation. Texted mother she was going to hurt herself with a knife, but she did not mean it . 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 - Social history:: Smoking status: Patient uses tobacco products, smokes one-half pack cigarettes per day, Patient/guardian denies using alcohol, street drugs. - Ebola Screening: : No symptoms or risks identified at this time. ROS: 17:55 Constitutional: Negative for fever, chills, and weight loss, Eyes: Negative for injury, pm1 pain, redness, and discharge, ENT: Negative for injury, pain, and discharge, Neck: Negative for injury, pain, and swelling, Cardiovascular: Negative for chest pain, palpitations, and edema, Respiratory: Negative for shortness of breath, cough, wheezing, and pleuritic chest pain, Abdomen/GI: Negative for abdominal pain, nausea, vomiting, diarrhea, and constipation, Back: Negative for injury and pain, MS/Extremity: Negative for injury and deformity, Skin: Negative for injury, rash, and discoloration, Neuro: Negative for headache, weakness, numbness, tingling, and seizure. 17:55 : Positive for urinary urgency - her typical presentation for UTI, Negative for pelvic pain, flank pain. 17:55 Psych: Positive for Anger, Negative for drug dependence, alcohol dependence, auditory hallucinations, visual hallucinations, homicidal ideation, suicide gesture, suicidal ideation. Exam: 17:55 Constitutional: This is a well developed, well nourished patient who is awake, alert, pm1 and in no acute distress. Head/Face: Normocephalic, atraumatic. Eyes: Pupils equal round and reactive to light, extra-ocular motions intact. Lids and lashes normal. Conjunctiva and sclera are non-icteric and not injected. Cornea within normal limits. Periorbital areas with no swelling, redness, or edema. ENT: Nares patent. No nasal discharge, no septal abnormalities noted. Tympanic membranes are normal and external auditory canals are clear. Oropharynx with no redness, swelling, or masses, exudates, or evidence of obstruction, uvula midline. Mucous membranes moist. Neck: Trachea midline, no thyromegaly or masses palpated, and no cervical lymphadenopathy. Supple, full range of motion without nuchal rigidity, or vertebral point tenderness. No Meningismus. Chest/axilla: Normal chest wall appearance and motion. Nontender with no deformity. No lesions are appreciated. Cardiovascular: Regular rate and rhythm with a normal S1 and S2. No gallops, murmurs, or rubs. Normal PMI, no JVD. No pulse deficits. Respiratory: Lungs have equal breath sounds bilaterally, clear to auscultation and percussion. No rales, rhonchi or wheezes noted. No increased work of breathing, no retractions or nasal flaring. Abdomen/GI: Soft, non-tender, with normal bowel sounds. No distension or tympany. No guarding or rebound. No evidence of tenderness throughout. Back: No spinal tenderness. No costovertebral tenderness. Full range of motion. Skin: Warm, dry with normal turgor. Normal color with no rashes, no lesions, and no evidence of cellulitis. MS/ Extremity: Pulses equal, no cyanosis. Neurovascular intact. Full, normal range of motion. 17:55 Psych: Behavior/mood is pleasant, Affect is calm, Oriented to person, place, time, Patient has no thoughts/intents to harm self or others. Delusions/hallucinations are not present. Vital Signs: 17:23 BP 118 / 69; Pulse 103; Resp 14; Temp 97.6; Pulse Ox 98% on R/A; Weight 59.87 kg; la1 Height 5 ft. 2 in. (157.48 cm); Pain 0/10; 17:23 Body Mass Index 24.14 (59.87 kg, 157.48 cm) la1 MDM: 17:38 Patient medically screened. pm1 18:45 ED course: Pending [facility] evaluation . pm1 19:09 Data reviewed: vital signs. Data interpreted: Pulse oximetry: on room air is 98 %. pm1 Interpretation: normal. 21:06 Counseling: I had a detailed discussion with the patient and/or guardian regarding: the pm1 historical points, exam findings, and any diagnostic results supporting the discharge/admit diagnosis, lab results, the need for outpatient follow up, a psychiatrist, to return to the emergency department if symptoms worsen or persist or if there are any questions or concerns that arise at home. 09/14 17:38 Order name: Acetaminophen pm1 09/14 17:38 Order name: Basic Metabolic Panel pm1 09/14 17:38 Order name: CBC with Diff pm1 09/14 17:38 Order name: ETOH Level pm1 09/14 17:38 Order name: Hepatic Function; Complete Time: 18:42 pm1 09/14 17:38 Order name: PT-INR; Complete Time: 18:42 pm1 09/14 17:38 Order name: Ptt, Activated; Complete Time: 18:42 pm1 09/14 17:38 Order name: Salicylate; Complete Time: 18:42 pm1 09/14 17:38 Order name: Urine Drug Screen; Complete Time: 18:42 pm1 09/14 17:40 Order name: Acetaminophen Level; Complete Time: 18:42 EDMS 09/14 17:40 Order name: Basic Metabolic Panel; Complete Time: 18:42 EDMS 09/14 17:40 Order name: CBC with Automated Diff; Complete Time: 18:42 EDVT 09/14 17:40 Order name: Alcohol Serum/Plasma; Complete Time: 18:42 EDVT 09/14 18:09 Order name: Urine Microscopic Only; Complete Time: 18:42 pm1 09/14 17:38 Order name: Urine Test (obtain specimen); Complete Time: 19:01 pm1 09/14 17:38 Order name: EKG - Nurse/Tech; Complete Time: 18:15 pm1 09/14 17:38 Order name: IV Saline Lock; Complete Time: 18:14 pm1 09/14 17:38 Order name: Labs collected and sent; Complete Time: 18:14 pm1 09/14 17:38 Order name: Urine Dipstick-Ancillary (obtain specimen); Complete Time: 18:14 pm1 09/14 18:16 Order name: Urine Dipstick--Ancillary (enter results) eb 09/14 18:16 Order name: Urine --Ancillary (enter results) 09/14 18:23 Order name: Urine Culture EDVT Administered Medications: 19:52 Drug: Rocephin 1 grams Route: IV; Rate: calculated rate; Site: right antecubital; cc3 20:10 Follow up: Response: No adverse reaction; IV Status: Completed infusion; IV Intake: [id number] Disposition: 09/14/18 21:07 Discharged to Home. Impression: Irritability and anger, Urinary tract infection, site not specified. - Condition is Stable. - Discharge Instructions: Urinary Tract Infection, Adult, Tips for Managing Your Anger. - Prescriptions for Macrobid 100 mg Oral Capsule - take 1 capsule by ORAL route every 12 hours for 10 days; 20 capsule. - Medication Reconciliation Form, Thank You Letter, Antibiotic Education, Prescription Opioid Use form. - Follow up: Emergency Department; When: As needed; Reason: Worsening of condition. Follow up: Private Physician; When: 2 - 3 days; Reason: Recheck today's complaints, Continuance of care, Re-evaluation by your physician. - Problem is new. - Symptoms have improved. Addendum: 09/18/2018 02:10 Co-signature as Attending Physician, Kim rodriguez a2 Signatures: Dispatcher [facility] [place] Qureshi RN RN la1 Ronak Almonte, LINE HELPER LINE HELPER pm1 Kim Wolfe MD MD ma2 Deyanira Kasper cc3 Corrections: (The following items were deleted from the chart) 09/14 21:24 21:07 09/14/2018 21:07 Discharged to Home. Impression: Irritability and anger; Urinary cc3 tract infection, site not specified. Condition is Stable. Forms are Medication Reconciliation Form, Thank You Letter, Antibiotic Education, Prescription Opioid Use. Follow up: Emergency Department; When: As needed; Reason: Worsening of condition. Follow up: Private Physician; When: 2 - 3 days; Reason: Recheck today's complaints, Continuance of care, Re-evaluation by your physician. Problem is new. Symptoms have improved. pm1
[2018-09-14 21:29] VITALS: BP 118/69; TEMP 97.6; O2SAT 98
== END 2018-09-14 21:24 | disposition home or self-care (01) ==
LOC: ER 17:16
DX: R45.4 Irritability and anger (principal); N39.0 Urinary tract infection, site not specified; F90.9 Attention-deficit hyperactivity disorder, unspecified type; Z88.8 Allergy status to other drugs, medicaments and biological substances; F17.210 Nicotine dependence, cigarettes, uncomplicated
CPT/HCPCS: 36415; 80048; 80076; 80307; 80320; 80329; 81003; 81015; 81025; 85025; 85610; 85730; 87077; 87086; 87088; 87186; 96365; 99285; J0696

== ENCOUNTER 2019-11-18 11:21 | Emergency (ER) | payer OTHER, SELFPAY ==
--- OUTSIDE RECORDS SUMMARY | 2019-11-18 11:23 | XMS REPORT | Continuity of Care Document ---
:1995 Author Organization [facility] t Address [address] [place] [address] Care Team Providers Name Role Phone Roberto Sinclair MD Attending Clinician [place] FOLEY Attending Clinician Unavailable Seble BARNEY Attending Clinician Jacob DUENAS Attending Clinician Roberto Sinclair MD Admitting Clinician Payers Payer Name Policy Type Policy Number Effective Date Expiration Date S ource Problems This patient has no known problems. Allergies, Adverse Reactions, Alerts Allergy Allergy Status Severity Reaction(s) Onset Inactive Treating Comm ents Source Name Type Date Date Clinician guaifene DA Active U 2019-0 [facility] sin 3- 00:00: [address] naproxen DA Active U 2019-0 [facility] 3-12 00:00: [address] Medications This patient has no known medications. Procedures This patient has no known procedures. Encounters Start End Encounter Admission Attending Care Care Encounter Source Date/Time Date/Time Type Type Clinicians Facility Department ID 2019-10-02 2019-10-03 [facility] PRADEEP Sinclair [id number] 07:48:00 17:41:00 Encounter Za PIERCE [id number] [facility] [id number] 2019-10-02 2019-10-02 Telephone Kavitha Fragoso [id number] 00:00:00 00:00:00 KARI [id number] [facility] [id number] 2019-10-01 2019-10-01 [facility] [id number] 14:23:29 15:19:35 [facility] [id number] Visit CLINICS [id number] 2019-09-15 2019-09-[id number] 15:25:28 15:57:16 [facility] [id number] Visit CLINICS [id number] 2019-09-01 2019-09-01 [facility] [id number] 15:33:00 16:56:10 [facility] [id number] Visit CLINICS [id number] Results Test Description Test Time Test Comments Results Result Comments Source PROTHROMBIN TIME 2018-05-21 13:50:00 Test Item Value Reference Range Interpretation Comme nts PROTHROMBIN TIME PATIENT (test 10.6 SECONDS 9.6-11.6 N code = PTP) INTERNATIONAL NORMAL RATIO (test 1.0 0.8-1.1 N The INR is to be used only code = INR) for monitoring oral anticoagulantth erapy. INDICATION INR VALUE ------1. Proph ylaxis, deep venous thrombos is, including high risk surgery. 2.0 - 3.0 2. Prophylaxis, de ep venous thrombosis, hip surgery, treatment for d eep venous thrombosis or p ulmonary prevention of systemic embolism in pat ients with valvular heart disease, atrial fibrilla tion, tissue heart va lve, or acute myocardial i nfarction. 2.0 - 3.0 3. M echanical prosthesis hear t valves, recurrent syste seema embolism. 3.0 - 4.5 Comments to [employer]: NURSE TO LABPTT [id number] 13:50:00 Test Item Value Reference Range Interpretation Comments PTT ACTIVATED (test code = APTT) 26.5 SECONDS 22.0-33.0 N Comments to [employer]: NURSE TO LABHCG SERUM [id number] 13:45:00 Test Item Value Reference Range Interpretation Comments HCG SERUM QUAL (test code = HCGQL) NEGATIVE NEGATIVE A BASIC METABOLIC [id number] 13:29:00 Test Item Value Reference Range Interpretation Comments SODIUM (test code = 140 MMOL/L 137-145 N NA) POTASSIUM (test code = 4.5 MMOL/L 3.5-5.1 N K) CHLORIDE (test code = 106 MMOL/L 98-107 N CL) CARBON DIOXIDE (test 27 MMOL/L 22-30 N code = CO2) ANION GAP (test code = 12 MMOL/L 14-24 L GAP) GLUCOSE (test code = 84 MG/DL 74-106 N GLU) BLOOD UREA NITROGEN 8 MG/DL 7-17 N (test code = BUN) GLOMERULAR FILTRATION > 60 Report ing units: RATE (test code = GFR) ml/mi n/1.73 m2 (Modified MDRD Formula)Referen ce Range: > or = 6 0 ml/min/1.73 m2 CREATININE (test code 0.70 MG/DL 0.52-1.04 N = CREAT) CALCIUM (test code = 9.5 MG/DL 8.4-10.2 N CA) [id number] 13:29:00 Test Item Value Reference Range Interpretation Comments MAGNESIUM (test code = MAG) 1.9 MG/DL 1.6-2.3 N CBC W/AUTO [id number] 13:22:00 Test Item Value Reference Range Interpretation Comments WHITE BLOOD CELL (test code = 5.1 K/MM3 3.8-9.8 N WBC) RED BLOOD CELL (test code = 4.18 M/MM3 3.58-4.97 N RBC) HEMOGLOBIN (test code = HGB) 12.9 G/DL 11.2-14.9 N HEMATOCRIT (test code = HCT) 38.8 % 33.2-43.5 N MEAN CELL VOLUME (test code = 93 fL 80.7-99.1 N MCV) MEAN CELL HGB (test code = MCH) 30.9 pg 27.0-34.1 N MEAN CELL HGB CONCETRATION 33.2 % 32.2-35.7 N (test code = MCHC) RED CELL DISTRIBUTION WIDTH 12.0 % 12.1-15.2 L (test code = RDW) PLATELET COUNT (test code = 221 K/MM3 129-368 N PLT) MEAN PLATELET VOLUME (test code 10.0 fl 7.4-10.4 N = MPV) NEUTROPHIL % (test code = NT%) 50.7 % 43-75 N IMMATURE GRANULOCYTE % (test 0.2 % 0.0-2.0 N code = IG%) LYMPHOCYTE % (test code = LY%) 35.6 % 14-44 N MONOCYTE % (test code = MO%) 9.0 % 4-13 N EOSINOPHIL % (test code = EO%) 3.9 % 0-6 N BASOPHIL % (test code = BA%) 0.6 % 0-2 N NUCLEATED RBC % (test code = 0.0 % 0-1.0 N NRBC%) NEUTROPHIL # (test code = NT#) 2.59 K/mm3 2.0-7.6 N IMMATURE GRANULOCYTE # (test 0.01 x10 3/uL 0-0.03 N code = IG#) LYMPHOCYTE # (test code = LY#) 1.82 K/mm3 1.0-3.8 N MONOCYTE # (test code = MO#) 0.46 K/mm3 0.1-0.8 N EOSINOPHIL # (test code = EO#) 0.20 K/mm3 0.0-0.2 N BASOPHIL # (test code = BA#) 0.03 K/mm3 0.0-0.2 N NUCLEATED RBC # (test code = 0.00 K/mm3 0.0-0.1 N NRBC#)
--- OUTSIDE RECORDS SUMMARY | 2019-11-18 11:24 | XMS REPORT | Summary of Care ---
:1995 Author Organization [facility] Address [address] [place] [id number] Care Team Providers Name Role Phone MD Marcos Primary Care Provider Reason for Visit Reason Comments ROUTINE VISIT Encounter Details Date Type Department Care Team Description 09/01/2019 Routine [facility] Teri James F TRANSPLANT NURSE Supervision of high risk in th ird trimester (Primary Dx); Visit [address] BMI 30.0-30.9,adult [facility] [place] [address] [phone] [place] [address] Allergies Active Allergy Reactions Severity Noted Date Comments Naproxen Hives 08/24/2015 Guaifenesin Other - See comments 03/10/2015 "spinni ng in circles as a child" Tramadol Other - See comments 08/24/2015 blister s documented as of this encounter (statuses as of 09/01/2019) Medications Medication Sig Dispensed Refills Start Date End Date Status vit Take 1 Packet by 30 Each 6 03/23/2019 Active 10-twqn-sqlrb-dha mouth daily. (SELECT-OB + DHA) 29 mg iron-1 mg -250 mg combo packIndications: Supervision of high risk in first trimester dextroamphetamine-amphet 90TAKE 1 TABLET 90 tablet 0 0 Active amine 20 mg BY MOUTH THREE tabletIndications: TIMES DAILY Attention deficit disorder, unspecified hyperactivity presence azithromycin (ZITHROMAX Take 1 tablet by 8 tablet 0 0 Active Z-VIDYA) 250 mg mouth daily. tabletIndications: Take 500 mg day Respiratory infection 1, then 250 mg days 2 to 5. documented as of this encounter (statuses as of 09/01/2019) Active Problems Problem Noted Date Respiratory infection 06/03/2019 Supervision of high risk in first trimester 03/23/2019 Multiparity 03/23/2019 Former smoker 03/23/2019 Syncope, vasovagal 03/23/2019 ADD (attention deficit disorder) 08/24/2015 Estimated Date of Delivery Comments Yes 10/22/2019 Based on Ultrasound, FHT: 163, Variable Presentation, Placen t\\a to early to evaluate documented as of this encounter (statuses as of 09/01/2019) Social History Tobacco Use Types Packs/Day Years Used Date Former Smoker Cigarettes Quit: 02/06/20 19 Smokeless Tobacco: Never Used Alcohol Use Drinks/Week oz/Week Comments Yes occasional Estimated Date of Delivery Comments Yes 10/22/2019 Based on Ultrasound, FHT: 163, Variable Presentation, Placen t\\a to early to evaluate Sex Assigned at Date Recorded Not on file Job Start Date Occupation Industry Not on file Not on file Not on file Travel History Travel Start Travel End No recent travel history available. documented as of this encounter Last Filed Vital Signs Vital Sign Reading Time Taken Comments Blood Pressure 100/60 09/01/2019 3:48 PM CDT Pulse 84 09/01/2019 3:48 PM CDT Temperature 36.9 C (98.5 F) 09/01/2019 3:48 PM CDT Respiratory Rate 18 09/01/2019 3:48 PM CDT Oxygen Saturation - - Inhaled Oxygen Concentration - - Weight 72.8 kg (160 lb 8 oz) 09/01/2019 3:48 PM CDT Height 154.9 cm (5' 1") 09/01/2019 3:48 PM CDT Body Mass Index 30.33 09/01/2019 3:48 PM CDT documented in this encounter Progress Notes Jennifer Cross RN - 09/01/2019 3:30 PM CDTPt [place] has been scheduled for IOL on 10/15/2019 @ 39.0wks, 0800. Teri Patel FNP - 09/01/2019 3:30 PM CDT Chief complaint: Chief Complaint Patient presents with ROUTINE VISIT HPI CC: Follow Up Visit Liberty Lujan is a 24 year old, , /White female. Patient's last menstrual period was 01/09/2019 (approximate). She is 32w5d with an intrauterine . Her estimated date of delivery is 10/22/2019, by Ultrasound. She has no complaints today. She reports +FM. She denies pain, contractions, LOF, or VB. The patient has no reports of headache, visual changes, epigastric pain, significant peripheral or facial edema or shortness of breath. Histories OB History Para Term AB Living 2 1 1 0 1 SAB TAB Ectopic Multiple Live Births 1 # Outcome Date GA Lbr Matti/2nd Weight Sex Delivery Anes PTL Lv 2 Current 1 Term 08/04/13 40w0d 7 lb 8 oz (3.402 kg) M NORMAL SPONT TOM Past Medical History: Diagnosis Date ADHD (attention deficit hyperactivity disorder) Anemia 2009 as a child per pt report Vasovagal syncope Family History Problem Relation Age of Onset Diabetes Mother Diabetes Father Family Status Relation Name Status Mo Alive Fa Alive No past surgical history on file. Social History Socioeconomic History Marital status: Single Spouse name: Not on file Number of children: Not on file Years of education: Not on file Highest education level: Not on file Occupational History Not on file Social Needs Financial resource strain: Not on file Food insecurity: Worry: Not on file Inability: Not on file Transportation needs: Medical: Not on file Non-medical: Not on file Tobacco Use Smoking status: Former Smoker Types: Cigarettes Last attempt to quit: 02/05/2019 Years since quittin.5 Smokeless tobacco: Never Used Substance and Sexual Activity Alcohol use: Yes Comment: occasional Drug use: Never Sexual activity: Yes Partners: Male control/protection: None Comment: Last intercourse: 01/20/2019 Lifestyle Physical activity: Days per week: Not on file Minutes per session: Not on file Stress: Not on file Relationships Social connections: Talks on phone: Not on file Gets together: Not on file Attends druze service: Not on file Active member of club or organization: Not on file Attends meetings of clubs or organizations: Not on file Relationship status: Not on file Intimate partner violence: Fear of current or ex partner: Not on file Emotionally abused: Not on file Physically abused: Not on file Forced sexual activity: Not on file Other Topics Concern Not on file Social History Narrative Patient lives alone, patient feels safe at home. Patient denies any cats. Social History Substance and Sexual Activity Sexual Activity Yes Partners: Male control/protection: None Comment: Last intercourse: 01/20/2019 Labs I have reviewed the patient's labs. and Labs are pending. Radiology No new radiology. Allergies Liberty is allergic to naproxen; robitussin [guaifenesin]; and tramadol. Medications Liberty has a current medication list which includes the following prescription(s): azithromycin, dextroamphetamine-amphetamine, and vit [id number]-[id number]-dha. Review of Systems Constitutional: Negative. HENT: Negative. Eyes: Negative. Respiratory: Negative. Breasts: Negative. Cardiovascular: Negative. Gastrointestinal: Negative. Genitourinary: Negative. Musculoskeletal: Negative. Skin: Negative. Neurological: Negative. Psychiatric/Behavioral: Negative. Endocrine: Endocrine negative BP 100/60 (BP Location: Left arm, Patient Position: Sitting, BP CUFF SIZE: Adult Medium) | Pulse 84 | Temp 36.9 C (98.5 F) (Oral) | Resp 18 | Ht 5' 1" (1.549 m) | Wt 160 lb 8 oz (72.8 kg) | LMP 01/09/2019 (Approximate) | BMI 30.33 kg/m Pregravid BMI: 26.3 Physical Exam Vitals reviewed. Constitutional: She is oriented to person, place, and time. She appears well- developed and well-nourished. Pulmonary/Chest: Normal inspiratory effort. Abdominal: Abdomen is soft. No mass palpated. No tenderness present. There is no rigidity and no guarding. Neuro/Psychiatric: She has a normal mood and affect. She is oriented to person, place, and time. Skin: Skin normal. Uterus: Soft, gravid, nontender Assessment/Plan Supervision of high risk in third trimester (primary encounter diagnosis) Comment: Patient appears well, see HPI. Today we discussed kick counts. Monitor movementthroughout the day. If you notice a decrease or change in movement, lie down, have a snack, and monitor your baby's movement. ACOG states "a healthy baby should have 10 movements in less than 2 hours. Most babies will take less than 30 minutes". Call or proceed to hospital for evaluation if you notice less than this. Plan: CBC WITH DIFF, HIV 1/2 AG-AB WITH REFLEX, GAL[facility] ONLY - SYPHILIS IGG/IGM, Glycosylated Hemoglobin (A1C) BMI 30.0-30.9,adult Comment: BMI 30.33. 5 lb weight gain since last visit, 21 lb TWG. Dietary counseling - avoid sweets,added sugars, sweetened beverages and processed carbs. Concentrate on lean proteins, vegetables and fruits, and healthy fats. Drink plenty of water. Try to get 30 minutes of moderate exercise/walking on most days. Plan: monitor each visit Return to clinic in 2 weeks. Reviewed patient instructions and provided printed copy. This visit did not involve counseling and coordination that comprised more than 50% of the visit time. YULISSA Shah documented in this encounter Plan of Treatment Date Type Specialty Care Team Description 09/15/2019 Routine Visit [facility] Neto Pruett PA-C [address] [place], [place] [address]mar[address]. [place], [place] [phone] Name Type Priority Associated Diagnoses Order S chedule CBC WITH DIFF LAB Routine Supervision of high risk Ex pected: 09/01/2019, in third Expires: 08/31/2020 trimester HIV 1/2 AG-AB WITH REFLEX LAB Routine Supervision of high risk Expected: 09/01/2019, in third Expires: 08/31/2020 trimester GAL[facility] ONLY - SYPHILIS LAB Routine Supervision of high risk Expected: 09/01/2019, IGG/IGM in third Expires: 08/31/2020 trimester Glycosylated Hemoglobin LAB Routine Supervision of h igh risk Expected: 09/01/2019, (A1C) in third Expires: 08/31/2020 trimester CBC WITH DIFFERENTIAL LAB Routine Supervision of high risk Ordered: 09/01/2019 in third trimester Health Maintenance Due Date Last Done Comments HPV VACCINES (1 - Female 2-dose 03/13/2020 Postponed from 02/09/2004 series) ( or Nikki astfeeding) DTaP,Tdap,and Td Vaccines (1 - 03/23/2020 P ostponed from 02/09/2004 Tdap) (Alternative Tray delines) Depression Screening 08/31/2020 09/01/2019 PAP SMEAR 03/11/2021 03/11/2018 INFLUENZA VACCINE Completed 10/23/2018 PNEUMOCOCCAL 0-64 YEARS COMBINED Aged Out No longer eligible based on SERIES patient's age to complete this topic documented as of this encounter Results Not on filedocumented in this encounter Visit Diagnoses Diagnosis Supervision of high risk in th ird trimester - Primary Unspecified high-risk BMI 30.0-30.9,adult Body Mass Index 30.0-30.9, adult documented in this encounter Insurance Payer Benefit Plan / Subscriber ID Effective Phone Address [facility] xxxxxxxxx 2019-Prese [address] Medic aid HEALTH CHOICE - [place] [id number] MANAGED MEDICAID [place], [place] [id number] documented as of this encounter
--- OUTSIDE RECORDS SUMMARY | 2019-11-18 11:24 | XMS REPORT | Summary of Care ---
:1995 Author Organization [facility] Address [address] [place] [address] Care Team Providers Name Role Phone ECTOR Pruett Primary Care Provider Reason for Referral (Routine) Status Reason Specialty Diagnoses / Referred By Referred To Procedures Contact Contact New Request Diagnoses (spontaneous vaginal delivery) [facility] Procedures DISCHARGE FOLLOW-UP: CERTIFIED MEDICATION TECHNICIAN CLINIC L, [address] [address] Reason for Visit Auth/Cert Status Reason Specialty Diagnoses / Referred By Contact Refe rred To Contact Procedures Obstetrics Diagnoses 37 wks gestation of [address] [address] Phone: Fax: Encounter Details Date Type Department Care Team Description 10/02/2019 - Hospital Encounter Mother Baby Unit Za Sinclair uum-assisted 10/03/2019 (Cordelia Mejia MD vaginal delivery [address] [place] [address] [id number] [place] [address] [id number] Allergies Active Allergy Reactions Severity Noted Date Comments Naproxen Hives 08/24/2015 Guaifenesin Other - See comments 03/10/2015 "spinni ng in circles as a child" Tramadol Other - See comments 08/24/2015 blister s documented as of this encounter (statuses as of 10/03/2019) Medications Medication Sig Dispensed Refills Start Date End Date Status vitamin Take 1 tablet 100 tablet 3 10/03/2019 Active w/FA by mouth tabletIndications: daily. (spontaneous vaginal delivery) docusate calcium Take 1 60 capsule 1 10/03/2019 A ctive 240 mg capsule by capsuleIndications: mouth once (spontaneous daily as vaginal delivery) needed for Constipation. ferrous sulfate 325 Take 1 tablet 60 tablet 2 10/03/2019 Active mg (65 mg iron) by mouth 2 tabletIndications: (two) times (spontaneous daily. vaginal delivery) vit Take 1 Packet 30 Each 6 03/23/2019 10/03/2019 D iscontinued 84-nixx-sxgrw-dha by mouth (SELECT-OB + DHA) daily. 29 mg iron-1 mg -250 mg combo packIndications: Supervision of high risk in first trimester dextroamphetamine-a 90TAKE 1 90 tablet 0 04/14/2019 0 Discontinued mphetamine 20 mg TABLET BY tabletIndications: MOUTH THREE Attention deficit TIMES DAILY disorder, unspecified hyperactivity presence azithromycin Take 1 tablet 8 tablet 0 06/03/2019 10/03/2019 D iscontinued (ZITHROMAX Z-VIDYA) by mouth 250 mg daily. Take tabletIndications: 500 mg day 1, Respiratory then 250 mg infection days 2 to 5. Iron Fum & P-FA-Vit Take 1 90 capsule 2 09/15/2019 10/03/19 20 Discontinued B & C No.9 (INTEGRA capsule by PLUS) 125 mg iron- mouth daily 1 mg for 90 days. CapIndications: Anemia of mother in , antepartum documented as of this encounter (statuses as of 10/03/2019) Active Problems Problem Noted Date (spontaneous vaginal delivery) 10/03/2019 Vacuum-assisted vaginal delivery 10/03/2019 Single live 10/03/2019 Anemia, 10/03/2019 Decreased movements in third trimester 0 37 weeks gestation of 10/02/2019 Respiratory infection 06/03/2019 Supervision of high risk in first trimester 03/23/2019 Multiparity 03/23/2019 Former smoker 03/23/2019 Syncope, vasovagal 03/23/2019 ADD (attention deficit disorder) 08/24/2015 Estimated Date of Delivery Comments Yes 10/22/2019 Based on Ultrasound, FHT: 163, Variable Presentation, Placen t\\a to early to evaluate documented as of this encounter (statuses as of 10/03/2019) Immunizations Name Administration Dates Next Due HPV9 10/03/2019 () documented as of this encounter Social History Tobacco Use Types Packs/Day Years [...] Travel End No recent travel history available. COVID-19 Exposure Response Date Recorded In the last month, have you been in contact with No / Unsure 10/02/2019 7:45 AM CDT someone who was confirmed or suspected to have Coronavirus / COVID-19? documented as of this encounter Last Filed Vital Signs Vital Sign Reading Time Taken Comments Blood Pressure 104/65 10/03/2019 4:13 PM CDT Pulse 81 10/03/2019 4:13 PM CDT Temperature 36.9 C (98.5 F) 10/03/2019 4:13 PM CDT Respiratory Rate 17 10/03/2019 4:13 PM CDT Oxygen Saturation 97% 10/03/2019 4:13 PM CDT Inhaled Oxygen Concentration - - Weight 75.3 kg (166 lb) 10/02/2019 8:37 AM CDT Height 154.9 cm (5' 0.98") 10/02/2019 8:37 AM CDT Body Mass Index 31.38 10/02/2019 8:37 AM CDT documented in this encounter Discharge Summaries Phyllis Reyes CAROLYN - 10/03/2019 8:15 AM CDT DISCHARGE SUMMARY - VAGINAL DELIVERY Date of Service: 10/03/2019 ADMIT DATE: 10/02/2019 DISCHARGE DATE: 10/03/2019 ATTENDING MD: Za Sinclair MD ATTENDING MD AT DISCHARGE: Dalton Mcnulty CNM/BANK CLERK: Phyllis Reyes [facility] PCP: Jessica Pruett REASON FOR ADMISSION Admit For: IOL d/t decreased FM For: care for FINAL DIAGNOSIS: (the reason, after study, for admitting the patient to the hospital) S/P Vaginal Delivery SECONDARY DIAGNOSIS: (any diagnosis that, on this admission, required clinical evaluation, therapeutic treatment, diagnostic procedures, extended hospital stay, or additional nursing care/monitoring): Anemia Principal Problem: Vacuum-assisted vaginal delivery (10/03/2019) POA: Unknown Assessment: Delivered Plan: Routine course Active Problems: (spontaneous vaginal delivery) (10/03/2019) POA: Unknown Assessment: Delivered Plan: Routine course Single live (10/03/2019) POA: Unknown Assessment: Infant 2770 g with 8/9 Apgars Plan: Infant in care of pediatricians Anemia, (10/03/2019) POA: Unknown Assessment: asymptomatic HGB (g/dL) Date Value 10/03/2019 10.6 (L) Plan: Encouraged to continue daily intake of iron and iron rich foods, Will repeat CBC at 6 wk PP PRINCIPAL PROCEDURE: Cephalic vaginal delivery ADDITIONAL PROCEDURES: No past surgical history on file. Efm SIGNIFICANT LAB/X-RAYS: HCT (%) Date Value 10/03/2019 31.2 (L) HGB (g/dL) Date Value 10/03/2019 10.6 (L) 10/01/2019 10.6 (L) Rubella: immune Varicella: immune Type and Screen: A and RH postive S: Patient has no complaints. Patient denies sob, vertigo, headache, blurred vision, epigastric pain orpalpitations. Patient reports voiding without difficulty with good urine output. Patient reports ambulating unassisted without difficulty. Tolerating diet, passing flatus. Breast/bottlefeeding. Happy with new baby.No evidence of depression. Patient desires discharge home today. Contraception: IUD O: General: Alert and oriented. No apparent distress Affect appropriate Heart: regular rate and rhythm. Lungs: good inspiratory effort to inspections, lungs clear to auscultation bilaterally. Breast: soft Abdomen: soft non-tender. Fundus: firm at umbilicus Perineum: intact, no edema, hematoma or abcess Lochia: scant rubra, no clots Extremities: no edema bilaterally. No calf tenderness BP: (93-112)/(44-75) Temp: [36.3 C (97.3 F)-37.3 C (99.1 F)] Temp source: Oral (10/02 0749) Pulse: [63-95] Resp: [17-22] SpO2: [97 %-100 %] Height: [154.9 cm (5' 0.98")] Weight: [75.3 kg (166 lb)] BMI (calculated): [31.38] P: Routine instructions reviewed w/ pt. Precautions re: bleed/injury, depression, infection & DVT's reviewed. She was instructed to return to ER if Temp greater than 100.4F, headache unresolved with pain medications, visual disturbances including double orblurry vision, seeing spots, upper abdominal pain, or vaginal bleeding greater than 1 pad per hour. Pelvic rest 6 weeks, and no heavy lifting. DIET: Regular diet ACTIVITY: as tolerated, no strenuous activity and no heavy lifting DISCHARGE MEDICATIONS: Current Discharge Medication List START taking these medications Details docusate calcium (SURFAK) 240 mg Take 240 mg by mouth once daily as needed for Constipation. Qty: 60 capsule, Refills: 1 Start date: 10/03/2019 Associated Diagnoses: (spontaneous vaginal delivery) ferrous sulfate 325 mg Take 325 mg by mouth 2 (two) times daily. Qty: 60 tablet, Refills: 2 Start date: 10/03/2019 Associated Diagnoses: (spontaneous vaginal delivery) vitamin w/FA (PRENATABS RX) 1 tablet Take 1 tablet by mouth daily. Qty: 100 tablet, Refills: 3 Start date: 10/03/2019 Associated Diagnoses: (spontaneous vaginal delivery) STOP taking these medications Iron Fum & P-FA-Vit B & C No.9 (INTEGRA PLUS) 1 capsule Comments: Reason for Stopping: azithromycin (ZITHROMAX) 250 mg Comments: Reason for Stopping: dextroamphetamine-amphetamine 20 mg tablet Comments: Reason for Stopping: vit 28-dkjc-dtlxs-dha (SELECT-OB + DHA) 1 Packet Comments: Reason for Stopping: WOUND CARE: .Encouraged appropriate pericare DISCHARGE: Discharged: Home CONDITION AT TIME OF DISCHARGE: Stable FOLLOW-UP APPOINTMENT: With Lisandra MORALES in 3 week(s) BHARATH Pizarro Associated attestation - Dalton Mcnulty MD - 10/03/2019 1:51 PM CDTI was faculty on 10/03/2019 and agree with assessment and note by VERONICA Reyes. Patient has been evaluated by provider and is deemed stable for discharge. Additional information as per discharge summary below. Dalton Mcnulty MD, A M Fellow documented in this encounter Discharge Instructions AttachmentsThe following attachments cannot be sent through Care Everywhere. Vaginal , After a (Turkish)Well-Baby Checkup: Up to 1 Month (Turkish)When to Call the Healthcare Provider, After Delivery (Turkish)documented in this encounter Plan of Treatment Date Type Specialty Care Team Description 10/21/2019 Routine Visit OB Satellites Moris Levin, PROPERTY DAMAGE CLAIMS ADJUSTOR [address] [phone] Health Maintenance Due Date Last Done Comments INFLUENZA VACCINE (#1) 2019 10/23/2018 HPV VACCINES (1 - Female 2-dose 03/13/2020 Postponed from 02/09/2004 series) ( or Nikki astfeeding) DTaP,Tdap,and Td Vaccines (1 - 03/23/2020 P ostponed from 02/09/2004 Tdap) (Alternative Tray delines) Depression Screening 09/30/2020 10/01/2019 PAP SMEAR 03/11/2021 03/11/2018 PNEUMOCOCCAL 0-64 YEARS COMBINED Aged Out No longer eligible based on SERIES patient's age to complete this topic documented as of this encounter Procedures Procedure Name Priority Date/Time Associated Diagnosis Comme nts CBC WITH DIFF Routine 10/03/2019 1:20 AM Results for this CDT procedure are i n the results section. VENOUS CORD GAS ISIS 10/02/2019 4:30 PM Resul ts for this CDT procedure are i n the results section. ARTERIAL CORD GAS ISIS 10/02/2019 4:30 PM Res ults for this CDT procedure are i n the results section. GALV ONLY - ISIS 10/02/2019 10:57 AM Results for this SYPHILIS IGG/IGM CDT procedure a re in the results section. HEPATITIS B SURFACE [facility] 10/02/2019 10:57 AM R esults for this ANTIGEN CDT procedure are i n the results section. RHO (D) IMMUNE Routine 10/02/2019 10:56 AM Result s for this GLOBULIN CDT procedure are i n the results section. HB ABO GROUPING [facility] 10/02/2019 10:56 AM Resul ts for this CDT procedure are i n the results section. COVID-19 (ID NOW [facility] 10/02/2019 8:44 AM Resu lts for this RAPID TESTING) CDT procedure are in the results section. documented in this encounter Results CBC with Differential (10/03/2019 1:20 AM CDT) Pathologist Sig nature WBC 16.87 (H) 4.30 - 11.10 [facility] 10*3/L SERVICES RBC 3.49 (L) 3.93 - 5.25 [facility] 10*6/L SERVICES HGB 10.6 (L) 11.6 - 15.0 [facility] g/dL SERVICES HCT 31.2 (L) 35.7 - 45.2 % [facility] MCV 89.4 80.6 - 95.5 fL [facility] MCH 30.4 25.9 - 32.8 pg [facility] MCHC 34.0 31.6 - 35.1 [facility] g/dL SERVICES RDW-SD 42.9 39.0 - 49.9 fL [facility] RDW-CV 13.3 12.0 - 15.5 % [facility] PLT 246 166 - 358 [facility] 10*3/L SERVICES MPV 9.9 9.5 - 12.9 fL [facility] NRBC/100 WBC 0.0 0.0 - 10.0 /100 [facility] WBCs SERVICES NRBC x10^3 <0.01 10*3/L [facility] GRAN MAT (NEUT) % 85.4 % [facility] IMM GRAN % 0.50 % [facility] LYMPH % 7.1 % [facility] MONO % 6.3 % [facility] EOS % 0.3 % [facility] BASO % 0.4 % [facility] GRAN MAT x10^3(ANC) 14.41 (H) 1.88 - 7.09 [facility] 10*3/uL SERVICES IMM GRAN x10^3 0.09 (H) 0.00 - 0.06 [facility] 10*3/uL SERVICES LYMPH x10^3 1.20 (L) 1.32 - 3.29 [facility] 10*3/uL SERVICES MONO x10^3 1.06 (H) 0.33 - 0.92 [facility] 10*3/uL SERVICES EOS x10^3 0.05 0.03 - 0.39 [facility] 10*3/uL SERVICES BASO x10^3 0.06 0.01 - 0.07 [facility] 10*3/uL SERVICES Specimen Blood - ARM, LEFT Performing Organization Address City/[facility]/Zipcode Phone Number [facility] CLIA: [id number], [address] [place] [address] 555 [facility] ARTERIAL CORD GAS (10/02/2019 4:30 PM CDT) BASE EXCESS, CORD -9.2Comment: mEq/L [facility] QUES SERVICES AC PH, CORD 7.15 (L) 7.18 - 7.38 [facility] (BEAKER) SERVICES PC02, CORD 60 32 - 66 mmHg [facility] PO2, CORD 20 10 - 30 mmHg [facility] BICARBONATE, CORD 20 17 - 27 mEq/L [facility] Specimen Blood - CORD Performing Organization Address City/[facility] Phone Number [facility] CLIA: [id number], [address] [place] [address] 555 [facility] VENOUS CORD GAS (10/02/2019 4:30 PM CDT) VENOUS BASE -9.6 mEq/L [facility] EXCESS, CORD SERVICES VENOUS PH, CORD 7.23 (L) 7.25 - 7.45 [facility] VENOUS PC02, CORD 43 27 - 49 mmHg [facility] VENOUS PO2, CORD 25 17 - 41 mmHg [facility] VENOUS 18Comment: 12 - 29 mEq/L [facility] BICARBONATE, CORD QUES SERVICES Specimen Blood - CORD Performing Organization Address City/[facility] Phone Number [facility] CLIA: [id number], [address] [place] [address] 555 [facility] GALV ONLY - SYPHILIS IGG/IGM (10/02/2019 10:57 AM CDT) Pathologist Sig nature Syphilis IgG/IgM Non-reactive Non-reactive [facility] Specimen Blood - VENOUS Narrative Performed At [facility] Non-reactive - No serologic evidence of T. pallidum infection. Cannot exclude incubating or early syphilis . Submit a second specimen in 2-4 weeks if syphilis is clinically suspected. Equivocal - Further testing to follow. Reactive - Further testing to follow. Performing Organization Address City/State/Zipcode Phone Number [facility] CLIA: [id number], [address] [place] [address] 555 [facility] Hepatitis B Surface Antigen (10/02/2019 10:57 AM CDT) Pathologist Sig [facility] HBsAg Negative Negative [facility] HBsAg 0.08 [facility] Semi-Quantitative SERVICES Specimen Blood - VENOUS Performing Organization Address City/[facility]/Zipcode Phone Number [facility] CLIA: [id number], [address] [place] [address] [address] [facility] RHO (D) IMMUNE GLOBULIN (10/02/2019 10:56 AM CDT) Pathologist Sig [facility] RHIG CANDIDATE? No- see comment LAB Comment: Patient is not a candidate for RhIg- Patient is Rh Pos itive. Performed at [facility] - [facility] [address] [place] [address] Toll Free: [phone] CLIA No. [id number] Specimen Blood - VENOUS Performing Organization Address City/[facility] Phone Number [facility] LAB Type and Screen - ONCE ISIS (10/02/2019 10:56 AM CDT) Pathologist Sig [facility] ABO & RH A POSITIVE LAB Comment: Performed at [facility] - [facility] [address] [place] [address] Toll Free: [phone] CLIA No. [id number] IAT Negative LAB Comment: Performed at [facility] - [facility] [address] [place] [address] Toll Free: [phone] CLIA No. [id number] Specimen Blood - VENOUS Performing Organization Address City/State/Zipcode Phone Number [facility] COVID-19 (ID NOW RAPID TESTING) (10/02/2019 8:44 AM CDT) SARS-CoV-2 Rapid ID Not Detected Not Detected [facility] NOW [facility] Specimen Swab - NASOPHARYNGEAL SWAB Narrative Performed At [facility] NOW COVID-19 Assay is an isothermal nucleic acid [facility] amplification test intended for the qualitative detect ion of nucleic acid from SARS-CoV-2 viral RNA in nasopharynge al (BANK CLERK) specimens. It is used under Emergency Use Authori zation (EUA) by FDA. The limit of detection (LOD) of the assa y is 125 Genome Equivalents/mL. A positive result is indicative of the presence of SARS-CoV-2 RNA. Clinical correlation with patient hi story and other diagnostic information is necessary to deter mine patient infection status. A negative (Not Detected) result does not preclude SARS-CoV-2 infection. In patients with clinical sympto ms and other tests that are consistent with SARS-CoV-2 infect ion, negative results should be treated as presumptive nega tive and a new specimen should be tested with alternative P CR molecular test. Invalid: Please collect a new specimen for repeat hector ent testing if clinically indicated. Performing Organization Address City/State/Zipcode Phone Number [facility] CLIA: [id number], [address] [address] 555 [facility] documented in this encounter Visit Diagnoses Diagnosis Vacuum-assisted vaginal delivery - Prima ry (spontaneous vaginal delivery) Normal delivery Single live Anemia, documented in this encounter Administered Medications Medication Order MAR Action Action Date Dose Rate Site D5W-LR IV infusion 1,000 mL New Bag 10/02/2019 11:01 AM CDT 1,000 mL 125 mL/hr at 125 mL/hr, IV Infusion, CONTINUOUS, Starting Sat10/02/19 at 1030, Until Sat10/02/19 at 2128, Routine LR 1000 mL + oxytocin Rate Change 10/02/2019 3:00 PM 6 nga-unit s/min 18 mL/hr 20 units IV Solution CDT at 6-120 mL/hr, IV Infusion, TITRATE, Starting Sat10/02/19 at 1110, Until Sat10/02/19 at 2129, ISIS Rate Change 10/02/2019 2:00 PM CDT 8 nga-units/min 24 mL/hr Rate Change 10/02/2019 12:41 PM CDT 6 nga-units/min 18 mL/hr LR 1000 mL + oxytocin 20 units IV Given 10/02/2019 8:26 PM CDT 125 mL/hr Solution at 125 mL/hr, IV Infusion, ONCE, 1 dose, Sat10/02/19 at 1630, Routine morpHINE injection 4 mg Given 10/02/2019 4:37 PM CDT 4 mg 4 mg, Slow IV Push, ONCE, 1 dose, Sat10/02/19 at 1800, Routine documented in this encounter Additional Health Concerns Infection Onset Date Last Indicated Resolved Time COVID-19 Rule Out 10/02/2019 10/02/2019 10/02/2019 9: 52 AM CDT documented as of this encounter Insurance Payer Benefit Plan / Subscriber ID Effective Phone Address [facility] xxxxxxxxx 2019-Prese P[address]O. BOX Medic aid HEALTH CHOICE - [place] [id number] 1 MANAGED MEDICAID [place], [place]ID [phone] documented as of this encounter
--- OUTSIDE RECORDS SUMMARY | 2019-11-18 11:24 | XMS REPORT | Summary of Care ---
:1995 Author Organization [facility] Address [address] [place] [address] Care Team Providers Name Role Phone ECTOR Pruett Primary Care Provider Reason for Visit Reason Comments Results Encounter Details Date Type Department Care Team Description 10/02/2019 Telephone [facility] Kavitha Fragoso RN Results [address] [place] [address] Allergies Active Allergy Reactions Severity Noted Date Comments Naproxen Hives 08/24/2015 Guaifenesin Other - See comments 03/10/2015 "spinni ng in circles as a child" Tramadol Other - See comments 08/24/2015 blister s documented as of this encounter (statuses as of 10/02/2019) Medications Medication Sig Dispensed Refills Start Date End Date Status vit Take 1 Packet 30 Each 6 03/23/2019 Ac tive 88-thcw-ngbmg-dha by mouth daily. (SELECT-OB + DHA) 29 mg iron-1 mg -250 mg combo packIndications: Supervision of high risk in first trimester dextroamphetamine-amph 90TAKE 1 TABLET 90 tablet 0 04/14/2019 Active etamine 20 mg BY MOUTH THREE tabletIndications: TIMES DAILY Attention deficit disorder, unspecified hyperactivity presence azithromycin Take 1 tablet 8 tablet 0 06/03/2019 Ac tive (ZITHROMAX Z-VIDYA) 250 by mouth daily. mg tabletIndications: Take 500 mg day Respiratory infection 1, then 250 mg days 2 to 5. Iron Fum & P-FA-Vit B Take 1 capsule 90 capsule 2 09/15/2019 1 Active & C No.9 (INTEGRA by mouth daily PLUS) 125 mg iron- 1 for 90 days. mg CapIndications: Anemia of mother in , antepartum documented as of this encounter (statuses as of 10/02/2019) Active Problems Problem Noted Date Respiratory infection 06/03/2019 Supervision of high risk in first trimester 03/23/2019 Multiparity 03/23/2019 Former smoker 03/23/2019 Syncope, vasovagal 03/23/2019 ADD (attention deficit disorder) 08/24/2015 Estimated Date of Delivery Comments Yes 10/22/2019 Based on Ultrasound, FHT: 163, Variable Presentation, Placen t\\a to early to evaluate documented as of this encounter (statuses as of 10/02/2019) Social History Tobacco Use Types Packs/Day Years Used Date Former Smoker Cigarettes Quit: 02/06/20 Smokeless Tobacco: Never Used Alcohol Use Drinks/Week [...] been in contact with No / Unsure 10/01/2019 2:40 PM CDT someone who was confirmed or suspected to have Coronavirus / COVID-19? documented as of this encounter Last Filed Vital Signs Not on filedocumented in this encounter Plan of Treatment Date Type Specialty Care Team Description 10/09/2019 Routine Visit OB Satellites Neto Pruett PA-C [address] [place], [place] [address]d. [place] [address] [phone] Health Maintenance Due Date Last Done Comments [...] Results Not on filedocumented in this encounter Insurance Payer Benefit Plan / Subscriber ID Effective Phone Address [facility] xxxxxxxxx 2019-Prese P.O. BOX Medic aid HEALTH CHOICE - HEALTH CHOICE nt [id number] 1 MANAGED MEDICAID [place], [place] [phone] documented as of this encounter
--- OUTSIDE RECORDS SUMMARY | 2019-11-18 11:24 | XMS REPORT | Summary of Care ---
:1995 Author Organization [facility] Address [address] [place] [address] Care Team Providers Name Role Phone MD Marcos Primary Care Provider Reason for Visit Reason Comments ROUTINE VISIT Encounter Details Date Type Department Care Team Description 09/01/2019 Routine [facility] Teri James F PLATFORM WORKER Supervision of high risk in th ird trimester (Primary Dx); Visit [address] BMI 30.0-30.9,adult [facility] [address] [address] [address] [phone] [place] [address] Allergies Active Allergy Reactions Severity Noted Date Comments Naproxen Hives 08/24/2015 Guaifenesin Other - See comments 03/10/2015 "spinni ng in circles as a child" Tramadol Other - See comments 08/24/2015 blister s documented as of this encounter (statuses as of 09/01/2019) Medications Medication Sig Dispensed Refills Start Date End Date Status vit Take 1 Packet by 30 Each 6 03/23/2019 Active 42-qjdy-nhxke-dha mouth daily. (SELECT-OB + DHA) 29 mg [...] CDT documented in this encounter Progress Notes Teri James, YULISSA - 09/01/2019 3:30 PM CDT Chief complaint: [...] file Gets together: Not on file Attends hoahaoism service: Not on file Active member of [...] the following prescription(s): azithromycin, dextroamphetamine-amphetamine, and vit 45-xgaq-huwho-dha. Review of Systems Constitutional: Negative. HENT: Negative. [...] Routine Visit OB Satellites Neto Pruett PA-C [address] [place], [place] [address]d. [place] [address] [phone] Name Type Priority Associated Diagnoses Order [...] 09/01/2019, (A1C) in third Expires: 08/31/2020 trimester Health Maintenance Due Date Last Done [...] / Subscriber ID Effective Phone Address T e Group [facility] xxxxxxxxx 2019-Prese P.O. BOX Medic aid HEALTH CHOICE - HEALTH CHOICE nt [id number] 1 MANAGED MEDICAID [place], [place] MEDICAID [phone] ([place]) [place] [address] documented as of this encounter
--- OUTSIDE RECORDS SUMMARY | 2019-11-18 11:24 | XMS REPORT | Summary of Care ---
:1995 Author Organization [facility] - [facility] Address [address] [place] [address] Care Team Providers Name Role Phone ECTOR Pruett Primary Care Provider Reason for Visit Reason Comments ROUTINE VISIT Encounter Details Date Type Department Care Team Description 10/01/2019 Routine [facility] Fabiola Levin, [employer] [address] [place] [address] Supervision of high risk in th ird trimester (Primary Dx); Visit [facility] Jessica Pruett PA-C [address] [facility] [place] [address] Screening for viral disease; [facility] Anemia of mother in pregnanc y, antepartum; [address] BMI 31.0-31. [address], [address] [place] [address] Allergies Active Allergy Reactions Severity Noted Date Comments Naproxen Hives 08/24/2015 Guaifenesin Other - See comments 03/10/2015 "spinni ng in circles as a child" Tramadol Other - See comments 08/24/2015 blister s documented as of this encounter (statuses as of 10/02/2019) Medications Medication Sig Dispensed Refills Start Date End Date Status vit Take 1 Packet by 30 Each 6 03/23/2019 Suspended 50-cjyu-pfobn-dha mouth daily. (SELECT-OB + DHA) 29 mg iron-1 mg -250 mg combo packIndications: Supervision of high risk in first trimester Additional information dextroamphetamine-amphetamine 20 mg 90TAKE 1 90 tablet 0 06/2019 Suspended tabletIndications: Attention deficit TABLET BY disorder, unspecified hyperactivity MOUTH THREE presence TIMES DAILY Additional information azithromycin (ZITHROMAX Z-VIDYA) Take 1 tablet by 8 tablet 0 Suspended 250 mg tabletIndications: mouth daily. Take Respiratory infection 500 mg day 1, then 250 mg days 2 to 5. Additional information Iron Fum & P-FA-Vit B & Take 1 capsule 90 capsule 2 09/15/2019 12/14/2019 Suspended C No.9 (INTEGRA PLUS) by mouth daily 125 mg iron- 1 mg for 90 days. CapIndications: Anemia of mother in , antepartum Additional information documented as of this encounter (statuses as of 10/02/2019) Active Problems Problem Noted Date Decreased movements in third trimester 0 37 [...] Sign Reading Time Taken Comments Blood Pressure 110/62 10/01/2019 2:37 PM CDT Pulse 76 10/01/2019 2:37 PM CDT Temperature 36.7 C (98 F) 10/01/2019 2:37 PM CDT Respiratory Rate 18 10/01/2019 2:37 PM CDT Oxygen Saturation - - Inhaled Oxygen Concentration - - Weight 75.3 kg (166 lb) 10/01/2019 2:37 PM CDT Height 154.9 cm (5' 1") 10/01/2019 2:37 PM CDT Body Mass Index 31.37 10/01/2019 2:37 PM CDT documented in this encounter Progress Notes Jessica Pruett PA-C - 10/01/2019 2:45 PM CDT Chief complaint: Chief Complaint Patient presents with ROUTINE VISIT HPI CC: Follow Up Visit Liberty Lujan is a 24 year old, , /White female. Patient's last menstrual period was 01/09/2019 (approximate). She is 37w1d with an intrauterine . Her estimated date of delivery is 10/22/2019, by Ultrasound. She reports an increase in pelvic pressure and intermittent back pain over the last week. She reports +FM. She denies pain, regular or significant contractions, LOF, or VB. The patient has no reports of headache, visual changes, epigastric pain, significant peripheral or facial edema or shortness of breath. Denies close contact with someone suspected of having the Coronavirus. Denies any s/s of Coronavirus. Histories OB History Para Term AB Living [...] Last attempt to quit: 02/05/2019 Years since quittin.6 Smokeless tobacco: Never Used Substance and Sexual Activity Alcohol use: Yes Comment: occasional Drug use: Never Sexual activity: Yes Partners: Male control/protection: None Comment: Last intercourse: 01/20/2019 Lifestyle Physical activity: Days per week: Not on file Minutes per session: Not on file Stress: Not on file Relationships Social connections: Talks on phone: Not on file Gets together: Not on file Attends orthodox service: Not on file Active member of [...] Labs I have reviewed the patient's labs. Radiology I have reviewed the patient's radiology. . Allergies Liberty is allergic to naproxen; robitussin [guaifenesin]; and tramadol. Medications Liberty has a current medication list which includes the following prescription(s): iron fum & p-fa-vit b & c no.9, azithromycin, dextroamphetamine-amphetamine, and vit 95-vqef-kvvht-dha, and the following Facility-Administered Medications: d5w-lr, lactated ringers, lidocaine 1% (pf), lidocaine 1%, lr 1000 ml + oxytocin 20 units, sodium citrate-citric acid, and sodium citrate-citric acid. Review of Systems Constitutional: Negative. Negative for chills, fatigue and fever. HENT: Negative for facial swelling and sore throat. Negative for anosmia and aguesia Eyes: Negative for discharge, redness and visual disturbance. Respiratory: Negative for cough and shortness of breath. Cardiovascular: Negative for chest pain and leg swelling. Gastrointestinal: Negative for abdominal pain, constipation, diarrhea, nausea and vomiting. Genitourinary: Negative. Musculoskeletal: Negative for arthralgias, back pain and myalgias. Skin: Negative. Neurological: Negative for headaches. Psychiatric/Behavioral: Negative for dysphoric mood. Endocrine: Endocrine negative BP 110/62 (BP Location: Right arm, Patient Position: Sitting, BP CUFF SIZE: Adult Medium) | Pulse 76 | Temp 36.7 C (98 F) (Oral) | Resp 18 | Ht 5' 1" (1.549 m) | Wt 166 lb (75.3 kg) | LMP 01/09/2019 (Approximate) | BMI 31.37 kg/m Pregravid BMI: 26.3 Physical Exam Vitals reviewed. Constitutional: She is oriented to person, place, and time. Cardiovascular: No peripheral edema present. Pulmonary/Chest: Normal inspiratory effort. Abdominal: Abdomen is soft. Neuro/Psychiatric: She has a normal mood and affect. She is oriented to person, place, and time. Skin: Skin normal. External genitalia: Normal external genitalia appropriate for age. Uterus: Soft, gravid, non-tender Anus/perineum: Normal perineum and normal anus. Assessment/Plan Supervision of high risk in third trimester (primary encounter diagnosis) Comment: 37 wk IUP - routine education and warnings reviewed - normal vs abnormal discomforts of reviewed -labor precautions and current L&D protocols reviewed Plan: SARS-COV-2 IGG, GROUP B STREPTOCOCCUS BY PCR, CBC WITH DIFF Screening for viral disease Comment: routine Plan: SARS-COV-2 IGG History of delivery Comment: per patient, delivery at [facility] at 36 wks in last due to oligohydramnios Anemia of mother in , antepartum Comment: reports integra compliance Plan: cbc today BMI 31.0-31.9,adult Comment: Body mass index is 31.37 kg/m. TWG 27 lbs Plan: - recommendation to limit TWG to 15-25 lbs during based on pre- BMI of 25-29 - lifestyle modification through diet and exercise encouraged Return to clinic in 1 weeks. Reviewed patient instructions and provided printed copy. This visit did not involve counseling and coordination that comprised more than 50% of the visit time. Jessica Pruett PA-C 10/02/2019 3:22 PM documented in this encounter Plan of Treatment Date Type Specialty Care Team Description 10/09/2019 Routine Visit [facility] Neto Pruett PA-C [address] [place], [place] [address]d. [place], [place] [phone] Name Type Priority Associated Diagnoses Date/Ti me GROUP B STREPTOCOCCUS BY LAB Routine Supervision of h igh risk 10/01/2019 3:41 PM PCR in third CDT trimester Health Maintenance Due Date Last Done [...] Name Priority Date/Time Associated Diagnosis Comme nts SARS-COV-2 IGG Routine 10/01/2019 3:19 PM Supervision of high Results for this CDT risk in procedure are in third trimester the results Screening for viral section. disease CBC WITH DIFF Routine 10/01/2019 3:19 PM Supervision of high Results for this CDT risk in procedure are in third trimester the results section. documented in this encounter Results CBC WITH DIFF (10/01/2019 3:19 PM CDT) Pathologist Sig nature WBC 10.15 4.30 - 11.10 [facility] 10*3/L SERVICES RBC 3.49 (L) 3.93 - 5.25 [facility] 10*6/L SERVICES HGB 10.6 (L) 11.6 - 15.0 [facility] g/dL SERVICES HCT 31.9 (L) 35.7 - 45.2 % [facility] MCV 91.4 80.6 - 95.5 fL [facility] MCH 30.4 25.9 - 32.8 pg [facility] MCHC 33.2 31.6 - 35.1 [facility] g/dL SERVICES RDW-SD 43.1 39.0 - 49.9 fL [facility] RDW-CV 13.3 12.0 - 15.5 % [facility] PLT 276 166 - 358 [facility] 10*3/L [facility] MPV 10.2 9.5 - 12.9 fL [facility] NRBC/100 WBC 0.0 0.0 - 10.0 /100 [facility] WBCs SERVICES NRBC x10^3 <0.01 10*3/L [facility] GRAN MAT (NEUT) % 75.7 % [facility] IMM GRAN % 1.00 % [facility] LYMPH % 14.1 % [facility] MONO % 7.9 % [facility] EOS % 0.8 % [facility] BASO % 0.5 % [facility] GRAN MAT x10^3(ANC) 7.69 (H) 1.88 - 7.09 [facility] 10*3/uL SERVICES IMM GRAN x10^3 0.10 (H) 0.00 - 0.06 [facility] 10*3/uL SERVICES LYMPH x10^3 1.43 1.32 - 3.29 [facility] 10*3/uL SERVICES MONO x10^3 0.80 0.33 - 0.92 [facility] 10*3/uL SERVICES EOS x10^3 0.08 0.03 - 0.39 [facility] 10*3/uL SERVICES BASO x10^3 0.05 0.01 - 0.07 [facility] 10*3/uL SERVICES Specimen Blood - ARM, RIGHT Performing Organization Address City/State/Zipcode Phone Number [facility] CLIA: [id number], [address] [place] [address] [address] [facility] SARS-COV-2 IGG (10/01/2019 3:19 PM CDT) Pathologist Sig nature CoV-2 IgG NegativeComment: Negative [facility] Negative result does SERVICES not rule out acute SARS-CoV-2 infection. Clinical correlation as well as molecular diagnostic test are recommended to rule out acute infection if clinically indicated. Specimen Blood - ARM, RIGHT Narrative Performed At This test has been approved by FDA for emergency use. [facility] Performing Organization Address City/State/Zipcode Phone Number [facility] CLIA: [id number], [address] [place], [place] [address] [address] [facility] documented in this encounter Visit Diagnoses Diagnosis Supervision of high risk in th ird trimester - Primary Unspecified high-risk Screening for viral disease Special screening examination for unspec ified viral disease Anemia of mother in , antepartu m Anemia, antepartum BMI 31.0-31.9,adult Body Mass Index 31.0-31.9, adult documented in this encounter Insurance Payer Benefit Plan / Subscriber ID Effective Phone Address [facility] xxxxxxxxx 2019-Prese [address] Medic aid HEALTH CHOICE - HEALTH CHOICE nt [phone] 1 MANAGED MEDICAID [place], [place] MEDICAID [phone] documented as of this encounter
--- OUTSIDE RECORDS SUMMARY | 2019-11-18 11:24 | XMS REPORT | Summary of Care ---
:1995 Author Organization [facility] Address [address] [place] [address] Care Team Providers Name Role Phone ECTOR Pruett Primary Care Provider Reason for Visit Reason Comments ROUTINE VISIT Encounter Details Date Type Department Care Team Description 09/15/2019 Routine [facility] Jessica Pruett Superv ision of high risk in third trimester (Primary Dx); Visit [facility] ECTOR Anemia of mother in , antepartu m; [address] Screening for viral disease; [address] [facility]. BMI 30.0-30.9,[address] [place] [phone] Allergies Active Allergy Reactions Severity Noted Date Comments Naproxen Hives 08/24/2015 Guaifenesin Other - See comments 03/10/2015 "spinni ng in circles as a child" Tramadol Other - See comments 08/24/2015 blister s documented as of this encounter (statuses as of 09/16/2019) Medications Medication Sig Dispensed Refills Start Date End Date Status vit Take 1 Packet 30 Each 6 03/23/2019 Ac tive 60-kewo-xjkfm-dha by mouth daily. (SELECT-OB + DHA) 29 [...] as of this encounter (statuses as of 09/16/2019) Active Problems Problem Noted Date Respiratory infection 06/03/2019 Supervision of high risk in first trimester 03/23/2019 Multiparity 03/23/2019 Former smoker 03/23/2019 Syncope, vasovagal 03/23/2019 ADD (attention deficit disorder) 08/24/2015 Estimated Date of Delivery Comments Yes 10/22/2019 Based on Ultrasound, FHT: 163, Variable Presentation, Placen t\\a to early to evaluate documented as of this encounter (statuses as of 09/16/2019) Social History Tobacco Use Types Packs/Day Years [...] been in contact with No / Unsure 09/15/2019 3:36 PM CDT someone who was confirmed or suspected to have Coronavirus / COVID-19? documented as of this encounter Last Filed Vital Signs Vital Sign Reading Time Taken Comments Blood Pressure 115/60 09/15/2019 3:35 PM CDT Pulse 82 09/15/2019 3:35 PM CDT Temperature 36.8 C (98.3 F) 09/15/2019 3:35 PM CDT Respiratory Rate 18 09/15/2019 3:35 PM CDT Oxygen Saturation - - Inhaled Oxygen Concentration - - Weight 73.4 kg (161 lb 14.4 oz) 09/15/2019 3:35 PM CDT Height 154.9 cm (5' 1") 09/15/2019 3:35 PM CDT Body Mass Index 30.59 09/15/2019 3:35 PM CDT documented in this encounter Progress Notes Jessica Pruett PA-C - 09/15/2019 3:15 PM CDT Chief complaint: Chief Complaint Patient presents with ROUTINE VISIT HPI CC: Follow Up Visit Liberty Lujan is a 24 year old, , /White female. Patient's last menstrual period was 01/09/2019 (approximate). She is 34w6d with an intrauterine . Her estimated date of delivery is 10/22/2019, by Ultrasound. Patient reports heartburn at night. Has not tried anything for relief. She reports +FM. She denies pain, regular or significant contractions, LOF, or VB. The patient has no reports of headache, visual changes, epigastric pain, significant peripheral or facial edema or shortness of breath. Denies close contact with someone suspected of having the Coronavirus. Denies any s/s of Coronavirus. Reviewed COVID prevention precautions including masking, social distancing and hand hygiene. Patient instructed to call the [facility] access center if exposed to a person with known COVID infection or she develops symptoms. Histories OB History Para Term AB Living [...] file Gets together: Not on file Attends buddhist service: Not on file Active member of [...] & c no.9, azithromycin, dextroamphetamine-amphetamine, and vit 07-eqye-rxiza-dha. Review of Systems Constitutional: Negative. Negative for [...] for dysphoric mood. Endocrine: Endocrine negative BP 115/60 (BP Location: Right arm, Patient Position: Sitting, BP CUFF SIZE: Adult Medium) | Pulse 82 | Temp 36.8 C (98.3 F) (Oral) | Resp 18 | Ht 5' 1" (1.549 m) | Wt 161 lb 14.4 oz (73.4 kg)| LMP 01/09/2019 (Approximate) | BMI 30.59 kg/m Pregravid BMI: 26.3 Physical Exam Vitals reviewed. Constitutional: She is oriented to person, place, and time. Cardiovascular: No peripheral edema present. Pulmonary/Chest: Normal inspiratory effort. Abdominal: Abdomen is soft. Neuro/Psychiatric: She has a normal mood and affect. She is oriented to person, place, and time. Skin: Skin normal. Uterus: Soft, gravid, non-tender Assessment/Plan Supervision of high risk in third trimester (primary encounter diagnosis) Comment: 34 wk IUP - routine education and warnings reviewed - normal vs abnormal discomforts of reviewed -Patient reports heartburn at night. Has not tried anything for relief. - patient instructed to taketums, may drink, diet and lifestyle modifications reviewed Plan: POCT URINALYSIS W SPECIFIC GRAVITY, CBC WITH DIFF, GROUP B STREPTOCOCCUS BY PCR, SARS-COV-2 IGG Anemia of mother in , antepartum Comment: see labs Plan: Iron Fum & P-FA-Vit B & C No.9 (INTEGRA PLUS) 125 mg iron- 1 mg Cap Screening for viral disease Comment: will screen at NOV Plan: SARS-COV-2 IGG BMI 30.0-30.9,adult Comment: Body mass index is 30.59 kg/m. TWG 22 lbs Plan: - recommendation to limit TWG to 15-25 lbs during based on pre- BMI of 25-29 - lifestyle modification through diet and exercise encouraged Return to clinic in 2 weeks. Reviewed patient instructions and provided printed copy. This visit did not involve counseling and coordination that comprised more than 50% of the visit time. Jessica Pruett PA-C 09/16/2019 9:23 AM documented in this encounter Plan of Treatment Date Type Specialty Care Team Description 10/01/2019 Routine Visit [facility] Moris Levin SPECIAL DELIVERY MESSENGER [address] [place] [phone] Name Type Priority Associated Diagnoses Order S chedule CBC WITH DIFF LAB Routine Supervision of high risk Ex pected: 09/15/2019, in third Expires: 09/14/2020 trimester GROUP B STREPTOCOCCUS BY LAB Routine Supervision of h igh risk Expected: 09/15/2019, PCR in third Expires: 09/14/2020 trimester SARS-COV-2 IGG LAB Routine Supervision of high risk E xpected: 09/15/2019, in third Expires: 09/14/2020 trimester Screening for viral disease Health Maintenance Due Date Last Done Comments INFLUENZA VACCINE (#1) 2019 10/23/2018 HPV VACCINES (1 - Female 2-dose 03/13/2020 Postponed from 02/09/2004 series) ( or Nikki astfeeding) DTaP,Tdap,and Td Vaccines (1 - 03/23/2020 P ostponed from 02/09/2004 Tdap) (Alternative Tray delines) Depression Screening 09/14/2020 09/15/2019 PAP SMEAR 03/11/2021 03/11/2018 PNEUMOCOCCAL 0-64 YEARS COMBINED Aged Out No longer eligible based on SERIES patient's age to complete this topic documented as of this encounter Procedures Procedure Name Priority Date/Time Associated Diagnosis Comme nts POCT URINALYSIS Routine 09/15/2019 Supervision of high risk Results for this in third procedure are in the trimester results section . documented in this encounter Results POCT URINALYSIS W SPECIFIC GRAVITY (09/15/2019) Pathologist Sig nature POCT U SP GRAV . 1.005 - 1.025 mg/dl POCT PH U . 5 - 8 mg/dl POCT U LEUK EST . Negative - Negative POCT U NIT . Negative - Negative POCT U PROT trace Negative - Negative POCT U GLU negative Negative - Negative POCT U KETONE . Negative - Negative POCT U UROBILI . 0.2 - 1 mg/dl POCT U BILI . Negative - Negative POCT U BLD . Negative - Negative POCT U COLOR POCT U APPEAR Specimen Urine - URINE, CLEAN CATCH documented in this encounter Visit Diagnoses Diagnosis Supervision of high risk in th ird trimester - Primary Unspecified high-risk Anemia of mother in , antepartu m Anemia, antepartum Screening for viral disease Special screening examination for unspec ified viral disease BMI 30.0-30.9,adult Body Mass Index 30.0-30.9, adult documented in this encounter Insurance Payer Benefit Plan / Subscriber ID Effective Phone Address T [facility] xxxxxxxxx 2019-Jesse [address] Medic aid HEALTH CHOICE - [employer] nt [phone] 1 MANAGED MEDICAID [place], [place] MEDICAID [phone] documented as of this encounter
[2019-11-18] MEDS ORDERED: LIDOCAINE 1% 20 ML MDV ONE (11:59)
[2019-11-18] MEDS ORDERED: NA CHLORIDE 0.9% 1,000 ML ONE (11:59)
--- NOTE | 2019-11-18 12:12 | RAD REPORT ---
EXAM DESCRIPTION: CT - Head Brain Wo Cont - 11/18/2019 11:43 am CLINICAL HISTORY: Head injury status post fall COMPARISON: None TECHNIQUE: Computed axial tomography of the head was obtained. IV contrast was not requested. All CT scans are performed using dose optimization technique as appropriate and may include automated exposure control or mA/KV adjustment according to patient size. FINDINGS: An intracranial bleed is not seen . The ventricles are normal in caliber. No extra-axial fluid collection is noted. Bilateral basal ganglia calcifications likely benign Fluid within the sinuses/ mastoids is not seen. IMPRESSION: No acute intracranial abnormality is seen. If patient's symptoms persist MRI of the bra in would be recommended.
[2019-11-18 12:15] LABS: Absolute Lymphocytes (CBC) 0.9 K/uL (0.7-4.9); Basophils % 0.4 % (0-1.3); Hematocrit 38.7 % (36.0-45.0); Lymphocytes % 11.1 % (15.3-44.8); MPV 8.8 fL (7.6-11.3); RBC Red Blood Cell Count 4.37 M/uL (3.86-4.86)
[2019-11-18 12:39] LABS: Albumin 3.8 g/dL (3.4-5.0); Bilirubin Direct 0.1 mg/dL (0-0.2); Bilirubin Total 0.4 mg/dL (0.2-1.0); Magnesium 1.8 mg/dL (1.8-2.4); Potassium 3.5 mmol/L (3.5-5.1); Protein, Total 7.6 g/dL (6.4-8.2)
--- NOTE | 2019-11-18 12:54 | ER ---
Nurse's Notes [facility] Name: Liberty Lujan Age: 24 yrs Sex: Female : 1995 Arrival Date: 11/18/2019 Time: 11:22 Bed 4 Private MD: Diagnosis: Laceration without foreign body of scalp;Hypotension Presentation: 11/17 11:27 Chief complaint: Patient states: Tripped and fell, hit head on the entertainment ca1 center. reports LOC. Pt says, "I am a vasovagal syncope pt so I don't know if I passed out because I hit my head, or saw blood, I don't remember more than I tripped and waking up seeing all the blood". Lac on R upper eyebrow. Bleeding controlled. Reports BP is normally low at SBP in the 80s. Coronavirus screen: Client denies travel out of the [place] in the last 14 days. At this time, the client does not indicate any symptoms associated with coronavirus-19. Ebola Screen: Patient negative for fever greater than or equal to 101.5 degrees Fahrenheit, and additional compatible Ebola Virus Disease symptoms Patient denies exposure to infectious person. Patient denies travel to an Ebola-affected area in the 21 days before illness onset. No symptoms or risks identified at this time. Initial Sepsis Screen: Does the patient meet any 2 criteria? No. Patient's initial sepsis screen is negative. Does the patient have a suspected source of infection? No. Patient's initial sepsis screen is negative. Risk Assessment: Do you want to hurt yourself or someone else? Patient reports no desire to harm self or others. Onset of symptoms was November 18, 2019. 11:27 Method Of Arrival: Wheelchair ca1 11:27 Acuity: TRENT 2 ca1 11:30 Care prior to arrival: None. Mechanism of Injury: Fall from standing position. Trauma bp event details: Injury occurred in the [facility] [place], Injury occurred: at home. Injury occurred: November 18, 2019 Injury occurred at: 11:00. [facility]: 11:37 LMP 11/09/2019 ca1 Trauma Activation: Consult Physician: ED Physician; Name: ; Notified At: ; Arrived At: Physician: General Surgeon; Name: ; Notified At: ; Arrived At: Physician: Radiology; Name: ; Notified At: ; Arrived At: Physician: Respiratory; Name: ; Notified At: ; Arrived At: Physician: Lab; Name: ; Notified At: ; Arrived At: Historical: - Allergies: 11:37 Robitussin Cough \\T\\ Cold CF; ca1 - Home Meds: 11:37 None [Active]; ca1 - PMHx: 11:37 ADD/ADHD; vasovagal syncope; ca1 - PSHx: 11:37 None; ca1 - Immunization history:: Adult Immunizations up to date, Last tetanus immunization: < 5 years ago says 3 years ago. - Social history:: Smoking status: Patient reports the use of cigarette tobacco products. Screenin:30 Abuse screen: Denies threats or abuse. Abuse screen: Denies injuries from another. bp Nutritional screening: No deficits noted. Tuberculosis screening: No symptoms or risk factors identified. Primary Survey: 11:30 NO uncontrolled hemorrhage observed. A: The patient is alert. Airway: patent. bp Breathing/Chest: Respiratory pattern: regular, Respiratory effort: spontaneous, unlabored. Circulation: Skin temperature: warm, dry. Disability Alert. Exposure/Environment: All clothing and personal items were removed. Forensic evidence collection is not deemed to be indicated at this time. Items placed in patient belonging bag. There is no evidence of uncontrolled external bleeding. Assessment: 12:30 Reassessment: LAC REPAIR PENDING. VS STABLE, NO DIZZINESS OR ATAXIA NOTED. General: bp Appears in no apparent distress. uncomfortable, Behavior is cooperative, appropriate for age, anxious. 13:11 Reassessment: PT D/C HOME AMBULATORY, STEADY GAIT, DX WITH SYNCOPE. bp Vital Signs: 11:27 BP 85 / 61; Pulse 82; Resp 16 S; Temp 98.2(O); Pulse Ox 100% on R/A; Weight 72.57 kg ca1 (R); Height 5 ft. 2 in. (157.48 cm) (R); Pain 6/10; 12:34 BP 105 / 74; Pulse 89; Resp 17; Pulse Ox 100% ; jl7 11:27 Body Mass Index 29.26 (72.57 kg, 157.48 cm) ca1 [place] Coma Score: 12:35 Eye Response: spontaneous(4). Verbal Response: oriented(5). Motor Response: obeys jl7 commands(6). Total: 15. ED Course: 11:22 Patient arrived in ED. as 11:30 Triage completed. ca1 11:31 Fabiano Gaona, RN is Primary Nurse. bp 11:31 Theo Clancy PA is PHCP. jr8 11:31 Chintan Kinney MD is Attending Physician. jr8 11:37 Arm band placed on right wrist. ca1 11:37 Patient has correct armband on for positive identification. Placed in gown. Bed in low bp position. Call light in reach. Side rails up X2. 11:37 Patient maintains SpO2 saturation greater than 95% on room air. bp 11:44 CT Head Brain wo Cont In Process Unspecified. EDMS 12:13 Inserted saline lock: 22 gauge in right antecubital area, using aseptic technique. bp Administered Medications: 11:58 Drug: Lidocaine (1 %) 1 vials {Note: AT B/S FOR PROVIDER.} Volume: 20 ml; Route: bp Infiltration; 12:14 Drug: NS 0.9% 1000 ml Route: IV; Rate: 1000 ml; Site: right antecubital; bp 13:10 Follow up: IV Status: Completed infusion; IV Intake: 1000ml bp Intake: 13:10 IV: 1000ml; Total: 1000ml. bp Outcome: 11:37 Discharged to home ambulatory. bp 11:37 Condition: stable 11:37 Discharge instructions given to patient, Instructed on discharge instructions, follow up and referral plans. wound care, Demonstrated understanding of instructions, follow-up care, wound care. 11:37 Patient's length of stay was not longer than 2 hours. 12:53 Discharge ordered by . jr8 13:17 Patient left the ED. bp Signatures: Dispatcher [employer] EDMS Fabi Middleton Josh, PA PA jr8 Raheem Valdes, RN RN jl7 Fabiano Gaona, RN RN bp Jacki Castelan RN RN ca1 Corrections: (The following items were deleted from the chart) 11:31 11:27 BP 85 / 61; Pulse 82bpm; Resp 16bpm; Spontaneous; Pulse Ox 100% RA; Temp 98.2F ca1 Oral; 72.57 kg Reported; Height 5 ft. 2 in. Reported; BMI: 29.2; ca1 11:36 11:27 Chief complaint: Patient states: Tripped and fell, hit head on the entertainment ca1 center. reports LOC. Pt says, "I am a vasovagal syncope pt so I don't know if I passed out because I hit my head, or saw blood, I don't remember more than I tripped and waking up seeing all the blood". ca1
--- NOTE | 2019-11-18 12:54 | EDPHYS ---
Physician Documentation [facility] Name: Liberty Lujan Age: 24 yrs Sex: Female : 1995 Arrival Date: 11/18/2019 Time: 11:22 Bed 4 Private MD: ED Physician Chintan Kinney HPI: 11/17 12:50 This 24 yrs old Female presents to ER via Wheelchair with complaints of Fall jr8 Injury, Laceration To Head. 12:50 Details of fall: The patient fell from an upright position, while standing. Onset: The jr8 symptoms/episode began/occurred acutely, today. Associated injuries: The patient sustained injury to the head. Severity of symptoms: At their worst the symptoms were moderate, in the emergency department the symptoms are unchanged. The patient has not experienced similar symptoms in the past. The patient has not recently seen a physician. Patient stated that she tripped over a box and hit her head. + LOC. History of vasovagal reactions in past as well. BP low upon arrival . [employer]IST: 11:37 LMP 11/09/2019 ca1 Historical: - Allergies: 11:37 Robitussin Cough \T\ Cold CF; ca1 - Home Meds: 11:37 None [Active]; ca1 - PMHx: 11:37 ADD/ADHD; vasovagal syncope; ca1 - PSHx: 11:37 None; ca1 - Immunization history:: Adult Immunizations up to date, Last tetanus immunization: < 5 years ago says 3 years ago. - Social history:: Smoking status: Patient reports the use of cigarette tobacco products. ROS: 12:50 Eyes: Negative for injury, pain, redness, and discharge, ENT: Negative for injury, jr8 pain, and discharge, Neck: Negative for injury, pain, and swelling, Cardiovascular: Negative for chest pain, palpitations, and edema, Respiratory: Negative for shortness of breath, cough, wheezing, and pleuritic chest pain, Abdomen/GI: Negative for abdominal pain, nausea, vomiting, diarrhea, and constipation, Back: Negative for injury and pain, MS/Extremity: Negative for injury and deformity, Neuro: Negative for headache, weakness, numbness, tingling, and seizure. 12:50 Skin: Positive for laceration(s), of the right presybeterian . Exam: 12:50 Eyes: Pupils equal round and reactive to light, extra-ocular motions intact. Lids and jr8 lashes normal. Conjunctiva and sclera are non-icteric and not injected. Cornea within normal limits. Periorbital areas with no swelling, redness, or edema. ENT: Nares patent. No nasal discharge, no septal abnormalities noted. Tympanic membranes are normal and external auditory canals are clear. Oropharynx with no redness, swelling, or masses, exudates, or evidence of obstruction, uvula midline. Mucous membranes moist. Neck: Trachea midline, no thyromegaly or masses palpated, and no cervical lymphadenopathy. Supple, full range of motion without nuchal rigidity, or vertebral point tenderness. No Meningismus. Cardiovascular: Regular rate and rhythm with a normal S1 and S2. No gallops, murmurs, or rubs. Normal PMI, no JVD. No pulse deficits. Respiratory: Lungs have equal breath sounds bilaterally, clear to auscultation and percussion. No rales, rhonchi or wheezes noted. No increased work of breathing, no retractions or nasal flaring. Abdomen/GI: Soft, non-tender, with normal bowel sounds. No distension or tympany. No guarding or rebound. No evidence of tenderness throughout. Back: No spinal tenderness. No costovertebral tenderness. Full range of motion. Skin: Warm, dry with normal turgor. Normal color with no rashes, no lesions, and no evidence of cellulitis. MS/ Extremity: Pulses equal, no cyanosis. Neurovascular intact. Full, normal range of motion. Neuro: Awake and alert, GCS 15, oriented to person, place, time, and situation. Cranial nerves II-XII grossly intact. Motor strength 5/5 in all extremities. Sensory grossly intact. Cerebellar exam normal. Normal gait. 12:50 Head/face: Noted is a laceration(s), that is deep, that is jagged, 3 cm(s), of the right presybeterian. 12:50 ECG was reviewed by the Attending Physician. Vital Signs: 11:27 BP 85 / 61; Pulse 82; Resp 16 S; Temp 98.2(O); Pulse Ox 100% on R/A; Weight 72.57 kg ca1 (R); Height 5 ft. 2 in. (157.48 cm) (R); Pain 6/10; 12:34 BP 105 / 74; Pulse 89; Resp 17; Pulse Ox 100% ; jl7 11:27 Body Mass Index 29.26 (72.57 kg, 157.48 cm) ca1 [place] Coma Score: 12:35 Eye Response: spontaneous(4). Verbal Response: oriented(5). Motor Response: obeys jl7 commands(6). Total: 15. Laceration: 12:45 Wound Repair of 3cm ( 1.2in ) subcutaneous laceration to face. Distal jr8 neuro/vascular/tendon intact. Anesthesia: Local anesthetic administered with 2 mls of 1% lidocaine. Wound prep: Moderate cleansing with hibiclenz, Wound irrigation with saline, Wound explored extensively. Skin closed with 4 5-0 Prolene using interrupted sutures and sterile technique. Patient tolerated well. MDM: 11:32 Patient medically screened. jr8 12:48 Data reviewed: vital signs, nurses notes, lab test result(s), EKG, radiologic studies, jr8 CT scan, and as a result, I will discharge patient. Data interpreted: Pulse oximetry: on room air is 100 %. Interpretation: normal. Counseling: I had a detailed discussion with the patient and/or guardian regarding: the historical points, exam findings, and any diagnostic results supporting the discharge/admit diagnosis, lab results, radiology results, the need for outpatient follow up, a family practitioner, to return to the emergency department if symptoms worsen or persist or if there are any questions or concerns that arise at home. Response to treatment: the patient's symptoms have markedly improved after treatment, Blood pressure improved. Will d/c home to f/u with PCP. Knows to come back in 7 days for suture removal otherwise. . 11/17 11:37 Order name: Basic Metabolic Panel; Complete Time: 12:45 11/17 11:37 Order name: CBC with Diff; Complete Time: 12:45 11/17 11:37 Order name: CT Head Brain wo Cont; Complete Time: 12:17 11/17 11:37 Order name: LFT's; Complete Time: 12:45 11/17 11:37 Order name: Magnesium; Complete Time: 12:45 11/17 11:37 Order name: EKG; Complete Time: 11:37 11/17 11:37 Order name: Cardiac monitoring; Complete Time: 11:57 11/17 11:37 Order name: EKG - Nurse/Tech; Complete Time: 12:14 11/17 11:37 Order name: IV Saline Lock; Complete Time: 12:11/17 11:37 Order name: Labs collected and sent; Complete Time: 12:14 11/17 11:37 Order name: O2 Per Protocol; Complete Time: 11:43 11/17 11:37 Order name: O2 Sat Monitoring; Complete Time: :43 EC:50 Rate is 87 beats/min. Rhythm is regular, Normal Sinus Rhythm. QRS Conrad is Normal. MI jr8 interval is normal at 154 msec. QRS interval is normal at 72 msec. QT interval is normal at 464 msec. No Q waves. T waves are Normal. No ST changes noted. Clinical impression: Normal ECG. Interpreted by me. Reviewed by me. Administered Medications: 11:58 Drug: Lidocaine (1 %) 1 vials {Note: AT B/S FOR PROVIDER.} Volume: 20 ml; Route: bp Infiltration; 12:14 Drug: NS 0.9% 1000 ml Route: IV; Rate: 1000 ml; Site: right antecubital; bp 13:10 Follow up: IV Status: Completed infusion; IV Intake: 1000ml bp Disposition: 14:00 Co-signature as Attending Physician, Chintan Kinney MD. rn Disposition: 11/18/19 12:53 Discharged to Home. Impression: Laceration without foreign body of scalp, Hypotension. - Condition is Stable. - Discharge Instructions: Hypotension, Laceration Care, Adult. - Medication Reconciliation Form, Thank You Letter, Antibiotic Education, Prescription Opioid Use form. - Follow up: Private Physician; When: 1 week; Reason: Wound Recheck, Recheck today's complaints, Continuance of care, Staple/Suture removal, Re-evaluation by your physician. - Problem is new. - Symptoms have improved. Signatures: Dispatcher [employer] EDChintan Grayson MD MD rn Roszak, Josh, PA PA jr8 Fabiano Gaona RN RN bp Jacki Castelan RN RN ca1 Corrections: (The following items were deleted from the chart) 13:17 12:53 11/18/2019 12:53 Discharged to Home. Impression: Laceration without foreign body bp of scalp; Hypotension. Condition is Stable. Forms are Medication Reconciliation Form, Thank You Letter, Antibiotic Education, Prescription Opioid Use. Follow up: Private Physician; When: 1 week; Reason: Wound Recheck, Recheck today's complaints, Continuance of care, Staple/Suture removal, Re-evaluation by your physician. Problem is new. Symptoms have improved. jr8
[2019-11-18 13:24] VITALS: TEMP 98.2; O2SAT 100
[2019-11-18 13:39] VITALS: BP 105/74
== END 2019-11-18 13:17 | disposition home or self-care (01) ==
LOC: ER 11:21
PROC: 0JQ10ZZ Repair Face Subcutaneous Tissue and Fascia, Open Approach (ICD-10-PCS; principal; 2019-11-18)
DX: S01.81XA Laceration without foreign body of other part of head, initial encounter (principal); I95.9 Hypotension, unspecified; W01.198A Fall on same level from slipping, tripping and stumbling with subsequent striking against other object, initial encounter; Y93.89 Activity, other specified; Y92.9 Unspecified place or not applicable; F17.210 Nicotine dependence, cigarettes, uncomplicated; Z88.8 Allergy status to other drugs, medicaments and biological substances
CPT/HCPCS: 36415; 70450; 80048; 80076; 83735; 85025; 93005; 96360; 99284; J7030